=== PATIENT | female | born 1965 | race Caucasian/White ===

== ENCOUNTER → 2016-11-14 | Outpatient (CLI) | payer OTHER ==
--- NOTE | 2016-11-14 15:05 | US ---
EXAMINATION TYPE: US pelvic complete DATE OF EXAM: 11/14/2016 2:38 PM COMPARISON: Previous exam 06 Jan 2015 CLINICAL HISTORY: N85.8 UTERUS FIBROSIS,CYST. History of ovarian cysts, pelvic and back pain, irregul ar cycles, 2, para 2, history of tubal ligation TECHNIQUE: Transvaginal (TV) and Transabdominal (TA) endovaginal scanning performed for better evalu ation of the uterus and ovaries Date of LMP: 11/08/16 EXAM MEASUREMENTS: Uterus: 8.4 x 4.3 x 5.1 cm Endometrial Stripe: 0.9 cm Right Ovary: not seen Left Ovary: not seen 1. Uterus: anteverted, heterogenous echotexture without any definite lesions seen at this time, mult iple nabothian cysts 2. Endometrium: appears thickened for patient's LMP 3. Right Ovary: not seen due to overlying peristalsing bowel 4. Left Ovary: not seen due to overlying peristalsing bowel 5. Bilateral Adnexa: wnl 6. Posterior cul-de-sac: small amount of free fluid seen IMPRESSION: Exam is limited. Small amount of free fluid in the pelvis. Correlate for appropriate phas e of patient's flexor cycle for endometrial stripe thickness.
== END ==
LOC: RADUSWWP 14:12
PROVIDERS: ATTEND Family Medicine
DX: N85.8 Other specified noninflammatory disorders of uterus (principal)
CPT/HCPCS: 76830; 76856

== ENCOUNTER → 2017-01-04 | Outpatient (CLI) | payer OTHER ==
[2017-01-04 07:53] LABS: Basophils % (A) 0 %; CH 30.9; CHCM 33.6; Eosinophils # (A) 0.1 k/uL (0-0.7); Eosinophils % (A) 1 %; HDW 2.08; HGB 12.8 gm/dL (11.4-16.0); Luc # (Auto) 0.14; Luc % (Auto) 2; Lymphocytes % (A) 34 %; MCH 30.3 pg (25.0-35.0); MCHC 32.9 g/dL (31.0-37.0); MCV 92.3 fL (80.0-100.0); Mean Platelet Volume 6.8; Monocytes # (A) 0.4 k/uL (0-1.0); Monocytes % (A) 6 %; Neutrophils # (A) 3.3 k/uL (1.3-7.7); Neutrophils % (A) 56 %; RBC 4.22 m/uL (3.80-5.40); WBC (Perox) 5.56
== END | disposition home or self-care (01) ==
LOC: LABPAT 07:33
PROVIDERS: ATTEND Obstetrics & Gynecology
DX: Z01.812 Encounter for preprocedural laboratory examination (principal); N88.2 Stricture and stenosis of cervix uteri; N93.8 Other specified abnormal uterine and vaginal bleeding
CPT/HCPCS: 85025

== ENCOUNTER 2017-01-18 06:49 | Day surgery (SDC) | payer OTHER ==
--- NOTE | 2017-01-17 16:09 | HP ---
DATE OF ADMISSION: 01/18/2017 HISTORY OF PRESENT ILLNESS: The patient is a 51-year-old 2, para 2-0-0-[address] Dallas for significantly increasing cycle irregularity and a history of ovarian cysts. She presented initially with increasing cycle irregularity over the course of the last 2 years and had had multiple previous evaluations with Dr. Lal, at which times normal endometrial findings were noted. Most recently, however, she has been found to have bleeding roughly every 2 weeks. Ultrasound showed normal uterine and ovarian findings with an endometrial stripe thickness of 9 mm. She did have some acute pain immediately prior to her visit in our office which was consistent with a ruptured hemorrhagic cyst, all of the symptoms having resolved prior to presentation. She has minimal ongoing vasomotor symptoms and denies any dyspareunia or other [employer] issues. Past medical history is significant for a history of bradycardia as well as hypotension. She additionally has a history of migraine headaches, osteoarthritis, phlebitis and Raynaud syndrome as well as a torn left knee meniscus and some vertigo. Past surgical history is significant for D&C in the past by Dr. Lal. She additionally had cervical disc fusion and discectomy in 2009. She had a tubal ligation in 1990 and she had vein stripping of her left lower leg in 1982. Apparently there is no history of anesthetic concerns. OBSTETRICAL HISTORY: 2, para 2-0-0-2 with two term vaginal deliveries without complications. Method of contraception is tubal ligation. GYNECOLOGIC HISTORY: Unremarkable, with no history of any infections to include STDs. FAMILY HISTORY: Noncontributory. SOCIAL HISTORY: The patient is and does work outside the home. She is a nonsmoker and reports minimal alcohol or any other social concerns. Current medications include: 1. Multivitamin daily. 2. Estroven daily. 3. Claritin 10 mg daily as needed. 4. Fioricet as needed. 5. Ibuprofen 800 mg q.8 hours as needed. 6. Valtrex as needed. 7. Valium 5 mg as needed. 8. Vitamin D daily. ALLERGIES: DEXTROMETHORPHAN reportedly causes bradycardia and fainting as well as dizziness. REVIEW OF SYSTEMS: Confined to History of Present Illness. PHYSICAL EXAMINATION: Vital signs are stable. The patient is afebrile. In general this is a well-developed, well-nourished white female in no acute distress. Her heart has a regular rhythm and rate without murmur. Her lungs are clear to auscultation bilaterally in all villalpando. Her abdomen is nondistended, has normoactive bowel sounds, is soft, nontender, and without any palpable masses, hepatosplenomegaly or hernias. Her extremities are without any cyanosis, clubbing or edema and are nontender to palpation bilaterally. Pelvic examination demonstrates normal external genitalia and BUS with normal vaginal mucosa and cervix. There is no cervical motion tenderness. The uterus is 5 weeks in size, mid plane, mobile, nontender and normal in shape. I was unable to complete an endometrial biopsy secondary to cervical stenosis and inability to pass the biopsy tool. ASSESSMENT AND PLAN: Dysfunctional uterine bleeding with cervical stenosis. The diagnoses were discussed with the patient at some length and we discussed multiple different options for intervention. She has, after discussion of the choices, opted to proceed with diagnostic hysteroscopy with D&C and subsequent NovaSure endometrial ablation. The risks and complications of the procedures have been thoroughly discussed, including the risks for bleeding, bleeding requiring transfusion, infection, and injury to local structures to specifically include uterine perforation, Asherman syndrome, and subsequent hematometra. She understands all of these concerns and has agreed to proceed. She will be pretreated overnight with Cytotec to attempt to alleviate some of the stenosis.
[~2017-01-18 06:49] MED LIST: DEXAMETHASONE SOD PHOSPHATE 10 MG/ML 1 ML VIAL IV ONE; HYDROmorphone 1 MG/ML 1 ML SYRINGE IVP PRN; LACTATED RINGERS 1,000 ML IV SCH; MIDAZOLAM 2 MG/2 ML VIAL IV PRN; ONDANSETRON 4 MG/2 ML VIAL IVP ONE; Pre Op ABX Message 1 EACH MISC MISCELLANE ONE; SCOPOLAMINE 1.5MG/72HR PATCH TRANSDERM ONE
[2017-01-18] MEDS ORDERED: LIDOCAINE 1% 20 ML VIAL (10MG/ML) FOR IV START INTRADERMA ONE (07:22)
[2017-01-18] MEDS ORDERED: KETOROLAC 30 MG/ML 1 ML VIAL ONE (08:05)
[2017-01-18] MEDS ORDERED: PROPOFOL 10 MG/ML 20 ML VIAL IV ONE (08:05)
[2017-01-18] MEDS ORDERED: fentaNYL (PF) 50 MCG/ML 2 ML AMP ONE (08:05)
[2017-01-18] MEDS ORDERED: LIDOCAINE 1% INJ 10MG/ML (20 ML MDV) ONE (08:05)
[2017-01-18] MEDS ORDERED: MIDAZOLAM 2 MG/2 ML VIAL ONE (08:05)
[2017-01-18] MEDS ORDERED: ONDANSETRON 4 MG/2 ML VIAL IVP PRN (08:39)
[2017-01-18] MEDS ORDERED: diphenhydrAMINE 50 MG/ML 1 ML VIAL IVP PRN (08:39)
[2017-01-18] MEDS ORDERED: SIMETHICONE 80 MG CHEWABLE PO PRN (08:39)
[2017-01-18] MEDS ORDERED: IBUPROFEN 600 MG TAB PO PRN (08:39)
[2017-01-18] MEDS ORDERED: METOCLOPRAMIDE 5 MG/ML 2 ML VIAL IVP PRN (08:39)
[2017-01-18] MEDS ORDERED: Acetaminophen-Codeine 300-30mg TAB PO PRN ×2 (08:39)
[2017-01-18] MEDS ORDERED: KETOROLAC 30 MG/ML 1 ML VIAL IVP PRN (08:39)
[2017-01-18] MEDS ORDERED: LACTATED RINGERS 1,000 ML IV SCH (08:45)
--- NOTE | 2017-01-18 08:46 | P.OP ---
Date of Procedure: 01/18/17 Preoperative Diagnosis: #1. Dysfunctional uterine bleeding #2. Cervical stenosis Postoperative Diagnosis: Same Procedure(s) Performed: #1. Diagnostic hysteroscopy #2. Dilation and curettage #3. NovaSure endometrial ablation Implants: Anesthesia: other (Gen. by face mask) Surgeon: Jonathan Lentz Estimated Blood Loss (ml): 5 IV fluids (ml): 300 Urine output (ml): 40 Pathology: other (Endometrial curettings) Condition: stable Disposition: PACU Indications for Procedure: Operative Findings: Preoperative pelvic examination demonstrated a roughly 4-5 week retroverted mobile normal shaped uterus with normal adnexa bilaterally. The external os was slightly stenotic but was easily passed through with a uterine sound. The cervix measured approximately 3-1/2 cm while the uterus measured approximately 8 cm. Using the hysteroscope, the in vitro cavity was examined and there was no significant pathology noted. The tubal ostia were seen bilaterally. The settings for the NovaSure tool were a length of 4.5 cm, a width of 2.7 cm, a total power of 69 W. The total run time was 93 seconds after which time the base unit read "procedure complete." The postprocedural result appeared to be excellent. The patient is a borderline candidate for vaginal hysterectomy should become necessary. Description of Procedure: The patient was prepped and draped in usual fashion after general anesthesia was administered by the anesthesiologist. A weighted speculum was placed and the anterior lip of the cervix was grasped with a single-tooth tenaculum. The bladder had previously been drained of approximately 40 mL of clear sandra urine. A uterine sound was utilized to break down the stenosis at the external os and the uterus sounded to approximately 8 cm with the cervix measuring approximately 3.5 cm. Serial dilation was carried out to admit the diagnostic hysteroscope which was placed with findings as noted above. After adequate hysteroscopy had been carried out, the scope was set aside and further dilation carried out to admit a small sharp curette. Thorough circumferential curettage was carried out removing the tissue onto a Telfa placed in the vagina. Once adequately curetted, the Telfa was passed for pathological diagnoses and the NovaSure tool placed within the in vitro cavity. It was opened and seated well. The settings for the tool were as noted above. The cervix was of sealed and the cavity check attempted and passed without difficulty. The tool was enabled and the run was started. After a run time of approximately 93 seconds, the tool disengaged and the base unit read "procedure complete." The 2 was closed, removed, and discarded and the diagnostic scope replaced with the findings appeared to be excellent as noted above. Allis her mentation was removed. There is no ongoing bleeding from the tenaculum site or uterus. Estimated blood loss for the entire case was 5 mL or less. There are no complications. All sponge, instrument, and needle counts were correct. The patient tolerated the procedure well and proceeded to the recovery room in stable condition.
[2017-01-18 08:53] VITALS: TEMP 97.6
[2017-01-18 09:25] VITALS: RESP 18
[2017-01-18 09:39] VITALS: BP 102/56; PULSE 50
== END 2017-01-18 10:10 | disposition home or self-care (01) ==
LOC: OR 06:49
PROVIDERS: ATTEND Obstetrics & Gynecology
DX: N88.2 Stricture and stenosis of cervix uteri (principal); N93.8 Other specified abnormal uterine and vaginal bleeding; G43.909 Migraine, unspecified, not intractable, without status migrainosus; M19.90 Unspecified osteoarthritis, unspecified site; Z88.8 Allergy status to other drugs, medicaments and biological substances; Z79.899 Other long term (current) drug therapy
CPT/HCPCS: 58563; 81025; 88305; J2250; J1100; J2405; J2001; J3010; J1885; J2704

== ENCOUNTER → 2017-03-27 | Outpatient (CLI) | payer OTHER ==
--- NOTE | 2017-04-01 11:17 | MM ---
Reason for exam: screening (asymptomatic). Last mammogram was performed 2 years and 9 months ago. History: Family history of breast cancer in maternal aunt at age 50 and premenopausal breast cancer in maternal cousin at age 40. Benign stereotactic core biopsy of the right breast, February 22, 2000. Core biopsy of the right breast. Took hormonal contraceptives for 5 years beginning at age 15. Physical Findings: A clinical breast exam by your physician is recommended on an annual basis and results should be correlated with mammographic findings. MG 3D Screening Mammo W/Cad Bilateral CC and MLO view(s) were taken. Prior study comparison: June 22, 2014, bilateral MG screening mammo w CAD. March 20, 2012, bilateral digital screening mammo w/CAD. There are scattered fibroglandular densities. There is no discrete abnormality. ASSESSMENT: Negative, BI-RAD 1 RECOMMENDATION: Routine screening mammogram of both breasts in 1 year.
== END | disposition home or self-care (01) ==
LOC: RADMAMWWP 14:46
PROVIDERS: ATTEND Obstetrics & Gynecology
DX: Z12.31 Encounter for screening mammogram for malignant neoplasm of breast (principal); Z80.3 Family history of malignant neoplasm of breast
CPT/HCPCS: 77063; G0202

== ENCOUNTER → 2017-12-04 | Outpatient (CLI) | payer OTHER ==
[2017-12-04 06:58] LABS: Basophils % (A) 0 %; Eosinophils # (A) 0.1 k/uL (0-0.7); Eosinophils % (A) 2 %; HCT 38.9 % (34.0-46.0); HGB 12.9 gm/dL (11.4-16.0); Lymphocytes # (A) 1.7 k/uL (1.0-4.8); Lymphocytes % (A) 32 %; MCH 30.2 pg (25.0-35.0); MCHC 33.2 g/dL (31.0-37.0); MCV 90.9 fL (80.0-100.0); Mean Platelet Volume 6.7; Monocytes # (A) 0.3 k/uL (0-1.0); Monocytes % (A) 5 %; Neutrophils % (A) 57 %; Platelet Count 308 k/uL (150-450); RBC 4.28 m/uL (3.80-5.40); RDW 12.5 % (11.5-15.5); WBC 5.3 k/uL (3.8-10.6)
[2017-12-04 07:27] LABS: ALT 29 U/L (9-52); AST 19 U/L (14-36); Albumin 4.2 g/dL (3.5-5.0); Alkaline Phosphatase 67 U/L (38-126); Anion Gap 10 mmol/L; Blood Urea Nitrogen 12 mg/dL (7-17); Calcium 9.7 mg/dL (8.4-10.2); Carbon Dioxide 27 mmol/L (22-30); Chloride 103 mmol/L (98-107); Cholesterol 230 mg/dL (<200); Glucose 94 mg/dL (74-99); HDL Cholesterol 64 mg/dL (40-60); LDL Cholesterol,Calculated 141 mg/dL (0-99); Sodium 140 mmol/L (137-145); Total Bilirubin 0.3 mg/dL (0.2-1.3); Triglycerides 124 mg/dL (<150)
[2017-12-04 07:38] LABS: T4, Free (Free Thyroxine) 0.94 ng/dL (0.78-2.19)
[2017-12-04 11:05] LABS: Vitamin D 25 Hydroxy 18.5 ng/mL (30.0-100.0)
[2017-12-04 11:40] LABS: Hepatitis A Antibody IgM Non-Reactive (Non-Reactive)
[2017-12-04 11:41] LABS: Hepatitis B Core IgM Non-Reactive (Non-Reactive)
[2017-12-04 13:26] LABS: Hemoglobin A1C 5.6 % (4.0-6.0)
== END | disposition home or self-care (01) ==
LOC: LABWHC1 06:30
PROVIDERS: ATTEND Family Medicine
DX: Z00.00 Encounter for general adult medical examination without abnormal findings (principal); M19.90 Unspecified osteoarthritis, unspecified site; G43.009 Migraine without aura, not intractable, without status migrainosus
CPT/HCPCS: 36415; 80053; 80061; 80074; 82306; 83036; 84439; 84443; 85025

== ENCOUNTER → 2018-03-28 | Outpatient (CLI) | payer OTHER ==
--- NOTE | 2018-03-31 12:12 | MM ---
Reason for exam: screening (asymptomatic). Last mammogram was performed 1 year ago. History: Family history of breast cancer in maternal aunt at age 50 and premenopausal breast cancer in maternal cousin at age 40. Benign stereotactic core biopsy of the right breast, February 22, 2000. Core biopsy of the right breast. Took hormonal contraceptives for 5 years beginning at age 15. Physical Findings: A clinical breast exam by your physician is recommended on an annual basis and results should be correlated with mammographic findings. MG 3D Screening Mammo W/Cad Bilateral CC and MLO view(s) were taken. Technologist: RT Tomás (R)(M) Prior study comparison: March 27, 2017, bilateral MG 3d screening mammo w/cad. June 22, 2014, bilateral MG screening mammo w CAD. There are scattered fibroglandular densities. No suspicious abnormality. Right biopsy marker noted. ASSESSMENT: Negative, BI-RAD 1 RECOMMENDATION: Routine screening mammogram of both breasts in 1 year.
== END | disposition home or self-care (01) ==
LOC: RADMAMWWP 06:53
PROVIDERS: ATTEND Family Medicine
DX: Z12.31 Encounter for screening mammogram for malignant neoplasm of breast (principal)
CPT/HCPCS: 77063; 77067

== ENCOUNTER → 2019-05-19 | Outpatient (CLI) | payer OTHER ==
--- NOTE | 2019-05-19 16:26 | XR ---
EXAMINATION TYPE: XR lumbosacral spine min 4V DATE OF EXAM: 05/19/2019 CLINICAL HISTORY: Right-sided sciatica and low back pain. TECHNIQUE: Frontal, lateral, and oblique images of the lumbar spine are obtained. COMPARISON: None FINDINGS: There are 5 lumbar type vertebral bodies identified. The lumbar spine shows satisfactory alignment without evidence of acute fracture or dislocation. Vertebral body heights are within normal limits. The oblique images appear within normal limits. Intervertebral disc space narrowing is pre sent at L3-L4, L4-5 and L5-S1 with very minimal grade 1 anterolisthesis of 2 mm of L5 on S1. Facet ar thropathy is present from L4 through S1 with small anterior osteophytes of the lumbar spine are noted . The overlying soft tissue appears unremarkable. IMPRESSION: 1. No acute fracture or malalignment is seen in the lumbar spine. 2. Grade 1 anterolisthesis of L5 on S1, likely due to hypertrophic facet change. 3. Mild multilevel degenerative disc disease of the lumbar spine most focal from L3 through S1. Given the patient's symptoms MRI could assess for neural foraminal narrowing or disc herniation.
== END | disposition home or self-care (01) ==
LOC: LABWHC1 14:33
PROVIDERS: ATTEND Family Medicine
DX: M43.17 Spondylolisthesis, lumbosacral region (principal); M51.37 Other intervertebral disc degeneration, lumbosacral region; M51.36 Other intervertebral disc degeneration, lumbar region
CPT/HCPCS: 72110

== ENCOUNTER → 2019-06-03 | Outpatient (CLI) | payer OTHER ==
--- NOTE | 2019-06-03 15:57 | MR ---
EXAMINATION TYPE: MR lumbar spine wo con DATE OF EXAM: 06/03/2019 COMPARISON: Lumbar spine 05/19/2019 HISTORY: Sciatica, right side Disc disease, lower back pain TECHNIQUE: T1 and T2 axial and sagittal images of the lumbar spine are submitted. FINDINGS: There is no abnormal signal seen within the visualized spinal cord or paraspinal soft tissu es. At L1-2 there is no disc herniation or canal stenosis. No foraminal encroachment. At L2-3 there is no disc herniation or canal stenosis. No foraminal encroachment. At L3-4 there is circumferential disc bulging with facet arthropathy. Mild effacement of thecal sac a nd mild bilateral foraminal encroachment. No Canal stenosis At L4-5 there is degenerative disc disease with the disc broad-based bulging greater paracentrally an d laterally to the right. Right lateral and paracentral disc protrusion or herniation suspected with moderate right-sided foraminal encroachment. There is facet arthropathy and mild effacement of thecal sac with borderline stenosis. At L5-S1 there is degenerative disc disease and broad-based disc bulging slightly greater paracentral ly and laterally to the right. Hypertrophic change of the facets results in mild to moderate bilatera l foraminal encroachment. Could not exclude a bilateral spondylolysis of L5 with minimal anterolisthe sis. IMPRESSION: 1. Degenerative disc disease L3-S1. Disc bulging L3-L4 with mild effacement of thecal sac and mild bi lateral foraminal encroachment. 2. Broad-based disc bulging greater paracentrally and laterally the right at L4-L5. Moderate right-si ded foraminal encroachment. Right lateral and paracentral disc protrusion or herniation suspected. 3. Disc bulging L5-S1 with mild to moderate bilateral foraminal encroachment but no definite canal st enosis.
== END | disposition home or self-care (01) ==
LOC: RADMRIMAIN 14:31
PROVIDERS: ATTEND Family Medicine
DX: M51.26 Other intervertebral disc displacement, lumbar region (principal); M51.27 Other intervertebral disc displacement, lumbosacral region; M51.37 Other intervertebral disc degeneration, lumbosacral region
CPT/HCPCS: 72148

== ENCOUNTER → 2019-10-08 | Outpatient (CLI) | payer BC ==
[2019-10-08 07:37] LABS: Basophils % (A) 0 %; Eosinophils # (A) 0.1 k/uL (0-0.7); Eosinophils % (A) 2 %; HCT 40.8 % (34.0-46.0); HGB 12.8 gm/dL (11.4-16.0); Lymphocytes # (A) 1.5 k/uL (1.0-4.8); Lymphocytes % (A) 33 %; MCH 29.7 pg (25.0-35.0); MCHC 31.4 g/dL (31.0-37.0); MCV 94.5 fL (80.0-100.0); Mean Platelet Volume 7.2; Monocytes # (A) 0.3 k/uL (0-1.0); Monocytes % (A) 5 %; Neutrophils # (A) 2.7 k/uL (1.3-7.7); Neutrophils % (A) 57 %; Platelet Count 282 k/uL (150-450); RBC 4.32 m/uL (3.80-5.40); RDW 12.5 % (11.5-15.5); WBC 4.7 k/uL (3.8-10.6)
[2019-10-08 12:32] LABS: African American GFR (CKD) 95.5 (60.0-200.0); Albumin 4.5 g/dL (3.80-4.90); Albumin/Globulin Ratio 2.25 (1.60-3.17); Anion Gap 2.9 mmol/L (4.00-12.00); BUN/Creat Ratio 17.5 Ratio (12.00-20.00); Calcium 9.4 mg/dL (8.7-10.3); Carbon Dioxide 27.1 mmol/L (21.6-31.8); Chol/HDL Ratio 2.29; LDL Cholesterol,Calculated 67.4 mg/dL (0.0-131.0); Non-African American GFR(CKD) 82.4 (60.0-200.0); Potassium 4.6 mmol/L (3.5-5.5); Total Bilirubin 0.5 mg/dL (0.2-1.2); Total Protein 6.5 g/dL (6.2-8.2); VLDL Calculation 16.6 mg/dL (5.00-40.00)
[2019-10-08 12:40] LABS: T4, Free (Free Thyroxine) 1.3 ng/dL (0.80-1.80)
[2019-10-08 13:59] LABS: Hemoglobin A1C 5.6 % (4.0-6.0)
== END | disposition home or self-care (01) ==
LOC: LABWHC1 06:59
PROVIDERS: ATTEND Family Medicine
DX: Z00.00 Encounter for general adult medical examination without abnormal findings (principal); E55.9 Vitamin D deficiency, unspecified; E78.5 Hyperlipidemia, unspecified; G43.909 Migraine, unspecified, not intractable, without status migrainosus
CPT/HCPCS: 36415; 80053; 80061; 82306; 83036; 84439; 84443; 85025

== ENCOUNTER → 2019-11-11 | Outpatient (CLI) | payer BC ==
--- NOTE | 2019-11-11 09:50 | MM ---
Reason for exam: screening (asymptomatic). Last mammogram was performed 1 year and 7 months ago. History: Family history of breast cancer in maternal aunt at age 50 and premenopausal breast cancer in maternal cousin at age 40. Benign stereotactic core biopsy of the right breast, February 22, 2000. Core biopsy of the right breast. Took hormonal contraceptives for 5 years beginning at age 15. Physical Findings: A clinical breast exam by your physician is recommended on an annual basis and results should be correlated with mammographic findings. MG 3D Screening Mammo W/Cad Bilateral CC and MLO view(s) were taken. XCCL view(s) were taken of the right breast. Prior study comparison: March 28, 2018, bilateral MG 3d screening mammo w/cad. March 27, 2017, bilateral MG 3d screening mammo w/cad. There are scattered fibroglandular densities. No suspicious abnormality. Right biopsy marker noted. No significant changes when compared with prior studies. ASSESSMENT: Negative, BI-RAD 1 RECOMMENDATION: Routine screening mammogram of both breasts in 1 year.
== END | disposition home or self-care (01) ==
LOC: RADMAMWWP 07:39
PROVIDERS: ATTEND Family Medicine
DX: Z12.31 Encounter for screening mammogram for malignant neoplasm of breast (principal); Z80.3 Family history of malignant neoplasm of breast
CPT/HCPCS: 77063; 77067

== ENCOUNTER → 2021-06-02 | Outpatient (CLI) | payer MEDICAID ==
[2021-06-02 10:53] LABS: HCT 36.7 % (37.2-46.3); HGB 11.7 g/dL (12.0-15.0); MCH 29.1 pg (27.0-32.0); MCHC 31.9 g/dL (32.0-37.0); MCV 91.3 fL (80.0-97.0); Mean Platelet Volume 9.3 fL (9.5-12.2); Platelet Count 325 X 10*3/uL (140-440); RBC 4.02 X 10*6/uL (4.10-5.20); RDW 13.6 % (11.5-14.5); WBC 9.92 X 10*3/uL (4.50-10.00)
[2021-06-02 15:13] LABS: African American GFR (CKD) 102.2 (60.0-200.0); Albumin 4.3 g/dL (3.8-4.9); Albumin/Globulin Ratio 2.17 (1.60-3.17); Anion Gap 10.6 mmol/L (4.00-12.00); BUN/Creat Ratio 18.45 Ratio (12.00-20.00); Blood Urea Nitrogen 13.8 mg/dL (9.0-27.0); Calcium 9.3 mg/dL (8.7-10.3); Carbon Dioxide 24.5 mmol/L (21.6-31.8); Chol/HDL Ratio 2.08 Ratio; HDL Cholesterol 72.7 mg/dL (40.00-60.00); Non-African American GFR(CKD) 88.2 (60.0-200.0); Potassium 4.3 mmol/L (3.5-5.5); T4, Free (Free Thyroxine) 1.29 ng/dL (0.800-1.800); Total Bilirubin 0.2 mg/dL (0.30-1.20); Total Protein 6.2 g/dL (6.2-8.2); Triglycerides 71.5 mg/dL (0.00-149.00); VLDL Calculation 14.3 mg/dL (5.00-40.00)
== END | disposition home or self-care (01) ==
LOC: LABWHC1 07:27
PROVIDERS: ATTEND Family Medicine
DX: Z00.00 Encounter for general adult medical examination without abnormal findings (principal); I10 Essential (primary) hypertension; E78.5 Hyperlipidemia, unspecified; E55.9 Vitamin D deficiency, unspecified; G43.909 Migraine, unspecified, not intractable, without status migrainosus
CPT/HCPCS: 36415; 80053; 80061; 82306; 83036; 84439; 84443; 85027

== ENCOUNTER 2022-03-02 14:32 | Emergency (ER) | payer MEDICAID ==
[2022-03-02 16:19] VITALS: RESP 16; TEMP 97.8
[2022-03-02] MEDS ORDERED: SODIUM CHLORIDE 0.9% 500 ML 500 ML IV STA (17:06)
[2022-03-02] MEDS ORDERED: MORPHINE SULFATE 4 MG/ML SYRINGE IV STA (17:06)
--- NOTE | 2022-03-02 17:11 | ED ---
General Adult HPI - General Chief complaint: Abdominal Pain Stated complaint: Syncope/Abd Pain Time Seen by Provider: 03/02/22 16:57 Source: patient, RN notes reviewed, old records reviewed Mode of arrival: ambulatory Limitations: no limitations - History of Present Illness Initial comments: 56-year-old female presents for evaluation of lower abdominal pain and bloody diarrhea. Patient states her symptoms began earlier this afternoon. She had some crampy lower abdominal pain which is bilateral followed by some lightheadedness and diarrhea. She noted that the diarrhea was accommodation of stool and dark blood. She is not on any blood thinners. She has no measured fever. She states she had has some nausea without vomiting for the past several days. - Related Data Home Medications Medication Instructions Recorded Confirmed Acetaminophen [Tylenol Arthritis] 650 mg PO Q6H PRN 01/11/17 02/04/20 Cholecalciferol [Vitamin D3] 2,000 unit PO DAILY 01/11/17 02/04/20 Docusate [Colace] 200 mg PO HS 01/11/17 02/04/20 Loratadine [Claritin] 10 mg PO DAILY PRN 01/11/17 02/04/20 diazePAM [Valium] 10 mg PO HS PRN 01/11/17 02/04/20 Atorvastatin [Lipitor] 10 mg PO DAILY 02/04/20 02/04/20 Naproxen [Naprosyn] 500 mg PO BID 02/04/20 02/04/20 Previous Rx's Medication Instructions Recorded Azithromycin [Zithromax Tri-Gelacio (3 500 mg PO DAILY 3 Days #3 tab 03/02/22 tabs)] HYDROcodone/APAP 5-325MG [[place] 1 tab PO Q6HR PRN #12 tab 03/02/22 5-325] Allergies Allergy/AdvReac Type Severity Reaction Status Date / Time dextromethorphan Allergy Rapid Verified 03/02/22 16:16 Heart Rate Review of Systems ROS Statement: Those systems with pertinent positive or pertinent negative responses have been documented in the HPI. ROS Other: All systems not noted in ROS Statement are negative. 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 History of Any Multi-Drug Resistant Organisms: None Reported Past Surgical History: Back Surgery, Tubal Ligation, Uterine Ablation Additional Past Surgical History / Comment(s): CERVICAL DISCECTOMY & FUSION, VEIN STRIPPING LEFT LEG, RIGHT BREAST BX, COLONOSCOPY Past Anesthesia/Blood Transfusion Reactions: No Reported Reaction Past Psychological History: Anxiety Past Alcohol Use History: Occasional Past Drug Use History: None Reported - Past Family History Mother Family Medical History: Cancer Additional Family Medical History / Comment(s): LUNG CANCER General Exam Limitations: no limitations General appearance: alert, in no apparent distress Head exam: Present: atraumatic, normocephalic Eye exam: Present: normal appearance, PERRL ENT exam: Present: normal exam Neck exam: Present: normal inspection. Absent: tenderness, meningismus Respiratory exam: Present: normal lung sounds bilaterally. Absent: respiratory distress, wheezes Cardiovascular Exam: Present: regular rate, normal rhythm GI/Abdominal exam: Present: soft, tenderness. Absent: distended Extremities exam: Present: normal inspection, normal capillary refill. Absent: pedal edema, calf tenderness Neurological exam: Present: alert, oriented X3, CN II-XII intact. Absent: motor sensory deficit Psychiatric exam: Present: normal affect, normal mood Skin exam: Present: warm, dry, intact. Absent: cyanosis, diaphoretic Course Vital Signs 03/02/22 03/02/22 16:16 17:30 Temperature 97.8 F Pulse Rate 65 58 L Respiratory 16 16 Rate Blood Pressure 138/70 138/76 O2 Sat by Pulse 99 99 Oximetry Medical Decision Making - Medical Decision Making 56-year-old female with lower abdominal pain and an episode of diarrhea which was blood-tinged with mucus. Patient has some lower abdominal tenderness. Workup was initiated including laboratory testing and computed tomography scan. She has leukocytosis of 14.9. Stable hemoglobin. She has a mild hyponatremia 128. This will require outpatient surveillance. I did give IV fluids and morphine as well as Zofran. Reevaluation she still has some pain but is overall feeling better. I preferred observation, hydration and pain control however p atient prefers discharge with strict return parameters. - Lab Data Result diagrams: 03/02/22 17:21 03/02/22 17:21 Lab Results 03/02/22 03/02/22 03/02/22 Range/Units 17:21 17:21 17:21 WBC 14.9 H (3.8-10.6) k/uL RBC 4.27 (3.80-5.40) m/uL Hgb 13.0 (11.4-16.0) gm/dL Hct 39.6 (34.0-46.0) % MCV 92.8 (80.0-100.0) fL MCH 30.5 (25.0-35.0) pg MCHC 32.9 (31.0-37.0) g/dL RDW 13.0 (11.5-15.5) % Plt Count 313 (150-450) k/uL MPV 7.0 Neutrophils % 90 % Lymphocytes % 6 % Monocytes % 3 % Eosinophils % 0 % Basophils % 0 % Neutrophils # 13.4 H (1.3-7.7) k/uL Lymphocytes # 0.8 L (1.0-4.8) k/uL Monocytes # 0.5 (0-1.0) k/uL Eosinophils # 0.1 (0-0.7) k/uL Basophils # 0.1 (0-0.2) k/uL PT 10.4 (9.0-12.0) sec INR 0.9 (<1.2) APTT 25.0 (22.0-30.0) sec Sodium (137-145) mmol/L Potassium (3.5-5.1) mmol/L Chloride (98-107) mmol/L Carbon Dioxide (22-30) mmol/L Anion Gap mmol/L BUN (7-17) mg/dL Creatinine (0.52-1.04) mg/dL Est GFR (CKD-EPI)AfAm (>60 ml/min/1.73 sqM) Est GFR (CKD-EPI)NonAf (>60 ml/min/1.73 sqM) Glucose (74-99) mg/dL Plasma Lactic Acid [place] (0.7-2.0) mmol/L Calcium (8.4-10.2) mg/dL Total Bilirubin (0.2-1.3) mg/dL AST (14-36) U/L ALT (4-34) U/L Alkaline Phosphatase (38-126) U/L Total Protein (6.3-8.2) g/dL Albumin (3.5-5.0) g/dL Lipase (23-300) U/L Urine Color Yellow Urine Appearance Clear (Clear) Urine pH 5.5 (5.0-8.0) Ur Specific [place] 1.048 H (1.001-1.035) Urine Protein Negative (Negative) Urine Glucose (UA) Negative (Negative) Urine Ketones 2+ H (Negative) Urine Blood Negative (Negative) Urine Nitrite Negative (Negative) Urine Bilirubin Negative (Negative) Urine Urobilinogen <2.0 (<2.0) mg/dL Ur Leukocyte Esterase Negative (Negative) 03/02/22 03/02/22 Range/Units 17:21 17:21 WBC (3.8-10.6) k/uL RBC (3.80-5.40) m/uL Hgb (11.4-16.0) gm/dL Hct (34.0-46.0) % MCV (80.0-100.0) fL MCH (25.0-35.0) pg MCHC (31.0-37.0) g/dL RDW (11.5-15.5) % Plt Count (150-450) k/uL MPV Neutrophils % % Lymphocytes % % Monocytes % % Eosinophils % % Basophils % % Neutrophils # (1.3-7.7) k/uL Lymphocytes # (1.0-4.8) k/uL Monocytes # (0-1.0) k/uL Eosinophils # (0-0.7) k/uL Basophils # (0-0.2) k/uL PT (9.0-12.0) sec INR (<1.2) APTT (22.0-30.0) sec Sodium 128 L (137-145) mmol/L Potassium 4.5 (3.5-5.1) mmol/L Chloride 98 (98-107) mmol/L Carbon Dioxide 22 (22-30) mmol/L Anion Gap 8 mmol/L BUN 15 (7-17) mg/dL Creatinine 0.67 (0.52-1.04) mg/dL Est GFR (CKD-EPI)AfAm >90 (>60 ml/min/1.73 sqM) Est GFR (CKD-EPI)NonAf >90 (>60 ml/min/1.73 sqM) Glucose 121 H (74-99) mg/dL Plasma Lactic Acid [place] 1.0 (0.7-2.0) mmol/L Calcium 9.2 (8.4-10.2) mg/dL Total Bilirubin 0.6 (0.2-1.3) mg/dL AST 27 (14-36) U/L ALT 17 (4-34) U/L Alkaline Phosphatase 72 (38-126) U/L Total Protein 7.2 (6.3-8.2) g/dL Albumin 4.5 (3.5-5.0) g/dL Lipase 53 (23-300) U/L Urine Color Urine Appearance (Clear) Urine pH (5.0-8.0) Ur Specific [place] (1.001-1.035) Urine Protein (Negative) Urine Glucose (UA) (Negative) Urine Ketones (Negative) Urine Blood (Negative) Urine Nitrite (Negative) Urine Bilirubin (Negative) Urine Urobilinogen (<2.0) mg/dL Ur Leukocyte Esterase (Negative) Disposition Clinical Impression: Colitis Disposition: HOME SELF-CARE Condition: Fair Instructions (If sedation given, give patient instructions): Colitis (ED) Additional Instructions: Please monitor symptoms closely, return with worsening pain, significant bleeding, fever or any new or changing symptoms. Prescriptions: HYDROcodone/APAP 5-325MG [[place] 5-325] 1 tab PO Q6HR PRN #12 tab PRN Reason: Pain Azithromycin [Zithromax Tri-Gelacio (3 tabs)] 500 mg PO DAILY 3 Days #3 tab Is patient prescribed a controlled substance at d/c from ED?: No Referrals: Rajesh Dallas DO [Primary Care Provider] - 1-2 days Melissa Kumari MD [STAFF PHYSICIAN] - 1-2 days Time of Disposition: 18:59
[2022-03-02] MEDS ORDERED: ONDANSETRON 4 MG/2 ML VIAL IVP STA (17:31)
[2022-03-02 17:52] LABS: Basophils # (A) 0.1 k/uL (0-0.2); Basophils % (A) 0 %; Eosinophils # (A) 0.1 k/uL (0-0.7); Eosinophils % (A) 0 %; HCT 39.6 % (34.0-46.0); Lymphocytes # (A) 0.8 k/uL (1.0-4.8); Lymphocytes % (A) 6 %; MCH 30.5 pg (25.0-35.0); MCHC 32.9 g/dL (31.0-37.0); MCV 92.8 fL (80.0-100.0); Monocytes # (A) 0.5 k/uL (0-1.0); Monocytes % (A) 3 %; Neutrophils # (A) 13.4 k/uL (1.3-7.7); Neutrophils % (A) 90 %; Platelet Count 313 k/uL (150-450); RBC 4.27 m/uL (3.80-5.40); WBC 14.9 k/uL (3.8-10.6)
[2022-03-02 18:01] LABS: ALT 17 U/L (4-34); AST 27 U/L (14-36); African American GFR (CKD) >90 (>60 ml/min/1.73 sqM); Albumin 4.5 g/dL (3.5-5.0); Alkaline Phosphatase 72 U/L (38-126); Anion Gap 8 mmol/L; Blood Urea Nitrogen 15 mg/dL (7-17); Calcium 9.2 mg/dL (8.4-10.2); Carbon Dioxide 22 mmol/L (22-30); Chloride 98 mmol/L (98-107); Glucose 121 mg/dL (74-99); Lipase 53 U/L (23-300); Non-African American GFR(CKD) >90 (>60 ml/min/1.73 sqM); Potassium 4.5 mmol/L (3.5-5.1); Sodium 128 mmol/L (137-145); Total Bilirubin 0.6 mg/dL (0.2-1.3); Total Protein 7.2 g/dL (6.3-8.2)
[2022-03-02 18:04] LABS: INR 0.9 (<1.2); Prothrombin Time 10.4 sec (9.0-12.0)
[2022-03-02 18:28] LABS: Appearance,Urine Clear (Clear); Bilirubin,Urine Negative (Negative); Blood,Urine Negative (Negative); Color,Urine Yellow; Glucose,Urine (UA) Negative (Negative); Ketones,Urine 2+ (Negative); Leukocyte Esterase,Urine Negative (Negative); Nitrite,Urine Negative (Negative); PH, Urine 5.5 (5.0-8.0); Protein,Urine Negative (Negative); Urobilinogen,Urine <2.0 mg/dL (<2.0)
--- NOTE | 2022-03-02 18:28 | CT ---
EXAMINATION TYPE: CT abdomen pelvis w con DATE OF EXAM: 03/02/2022 COMPARISON: None HISTORY: Abd pain CT DLP: 1361.9 mGycm Automated exposure control for dose reduction was used. CONTRAST: Performed with IV Contrast, patient injected with 100 mL of Isovue 370. Images obtained from the diaphragm to the floor the pelvis with the IV contrast. There is mild subsegmental atelectasis at the lung bases. Heart size is normal. No pericardial effusi on. Liver spleen pancreas gallbladder appear intact. The bile ducts are not dilated. There is no adre nal mass. Kidneys show satisfactory contrast opacification. There is no hydronephrosis. Ureters are n ot dilated. There is no retroperitoneal adenopathy. There is small amount of fluid in the left paraco lic gutter. There is wall thickening of the descending colon. Sigmoid colon appears fairly normal. The lumbar vertebrae have fairly normal alignment. No compression fracture. There is L5 spondylolysis with minimal L5-S1 spondylolisthesis. No focal bone destruction. The bony pelvis is intact. The hip joints are intact. There is no ascites. IMPRESSION: There is moderate wall thickening of the descending colon with some fat stranding and fluid in the le ft paracolic gutter. This could be some nonspecific colitis. No evidence of any significant diverticu lar disease.
[2022-03-02 18:30] LABS: Specific Gravity,Urine 1.048 (1.001-1.035)
[2022-03-02 19:09] VITALS: BP 109/62; PULSE 56
== END 2022-03-02 19:28 | disposition home or self-care (01) ==
LOC: EC 14:32
DX: K52.9 Noninfective gastroenteritis and colitis, unspecified (principal); I10 Essential (primary) hypertension; Z88.8 Allergy status to other drugs, medicaments and biological substances
CPT/HCPCS: 36415; 80053; 83605; 83690; 85025; 85610; 85730; 81003; 74177; 99285; 96374; 96375; 96361; J2270; J2405; Q9967

== ENCOUNTER 2022-05-08 08:24 | Day surgery (SDC) | payer MEDICAID ==
[2022-05-07 10:55] VITALS: BMI 34.7
[~2022-05-08 08:24] MED LIST changes: -DEXAMETHASONE SOD PHOSPHATE 10 MG/ML 1 ML VIAL IV ONE; -HYDROmorphone 1 MG/ML 1 ML SYRINGE IVP PRN; +LIDOCAINE 1% (10MG/ML) FOR IV START INTRADERMA PRN; -MIDAZOLAM 2 MG/2 ML VIAL IV PRN; -ONDANSETRON 4 MG/2 ML VIAL IVP ONE; -Pre Op ABX Message 1 EACH MISC MISCELLANE ONE; -SCOPOLAMINE 1.5MG/72HR PATCH TRANSDERM ONE
[2022-05-08 09:31] LABS: Glucose,Whole Blood 94 mg/dL (70-110)
[2022-05-08 09:32] VITALS: TEMP 97.8
[2022-05-08] MEDS ORDERED: LIDOCAINE 2% INJ 20 MG/ML (2 ML VIAL) ONE (09:44)
[2022-05-08] MEDS ORDERED: PROPOFOL 10 MG/ML 20 ML VIAL IV ONE (09:44)
--- NOTE | 2022-05-08 10:09 | P.PCN ---
Date of Procedure: 05/08/22 Procedure(s) Performed: BRIEF HISTORY: Patient is a 56-year-old pleasant white female scheduled for an elective colonoscopy as a part of evaluation of recent episode of acute colitis for which she was hospitalized for 2 days a month ago. CT of abdomen showed thickening of the descending colon consistent with acute colitis. She was treated with antibiotics and discharged. PROCEDURE PERFORMED: Colonoscopy with biopsy. PREOPERATIVE DIAGNOSIS: []. IV sedation per Anesthesia. PROCEDURE: After informed consent was obtained, the patient, was brought into the endoscopy unit. IV sedation was administered by Anesthesia under continuous monitoring. Digital rectal examination was normal. Initially the Olympus CF-160 flexible video pediatric colonoscope was then inserted in the rectum, gradually advanced into the cecum moderate difficulty. Careful examination was performed as the scope was gradually being withdrawn. Ileocecal valve and the appendiceal orifice were visualized and appeared normal. Prep was excellent. Mucosa of the cecum, ascending colon, transverse colon, appeared normal. There was evidence of segmental colitis involving the descending colon, sigmoid colon, extending from 30-60 cm from the anal verge with mucosal erythema, friability, was discoloration and some superficial ulcerations more consistent with ischemic colitis and multiple biopsies were done from this area. Mucosa of the distal sigmoid colon and rectum appeared normal. Retroflexion was performed in the rect um and no lesions were seen. The patient tolerated the procedure well. IMPRESSION: Segmental colitis involving the proximal sigmoid colon and distal descending colon extending from 30-60 cm from the anal verge with erythema, friability and superficial ulcerations suspicious for ischemic colitis/inflammatory bowel disease Right colon and rectum appeared normal RECOMMENDATIONS: Findings of this examination were discussed with the patient [as well as her family. She was advised to follow with the biopsy results. She'll be seen in office in one to 2 weeks.
[2022-05-08 10:34] VITALS: BP 116/65; PULSE 63; RESP 15
== END 2022-05-08 11:00 | disposition home or self-care (01) ==
LOC: ORWHC2ENDO 08:24
PROVIDERS: ATTEND Internal Medicine Gastroenterology
DX: K51.90 Ulcerative colitis, unspecified, without complications (principal); K55.9 Vascular disorder of intestine, unspecified; K62.89 Other specified diseases of anus and rectum; E78.5 Hyperlipidemia, unspecified; G47.33 Obstructive sleep apnea (adult) (pediatric); F32.A Depression, unspecified; Z88.8 Allergy status to other drugs, medicaments and biological substances; Z79.899 Other long term (current) drug therapy
CPT/HCPCS: 88305; 45380; J2704; J2001

== ENCOUNTER → 2022-06-08 | Outpatient (CLI) | payer MEDICAID ==
--- NOTE | 2022-06-09 15:42 | CT ---
CT angiogram of the abdomen and pelvis HISTORY: Acute ischemia large intestine, abnormal CT helical acquisition obtained from the lung bases through the pelvis pre and post administration of 10 0 cc Isovue-370 IV. Three-dimensional reconstructions were performed on an alternate workstation and reviewed. Automated exposure control for dose reduction, DLP 1036.[address] scan 03/02/2022 Lung bases show no pleural or pericardial effusion, no evident mass. ABDOMEN: The abdominal aorta shows normal caliber. There is no evident dissection. No aneurysm. Some mild atheromatous changes present. The celiac axis, superior mesenteric artery, renal arteries, infer ior mesenteric artery are patent. Common iliac, internal and external iliac arteries are widely paten t. Common femoral arteries, proximal deep and superficial femoral arteries are patent. The liver, gallbladder, spleen, adrenal glands, kidneys, and pancreas are within normal limits. No re troperitoneal adenopathy, pneumoperitoneum, or ascites. No evident bowel obstruction. Urinary bladder is somewhat contracted and shows a thickened wall. There is thickening of the rectosi gmoid junction. Sigmoid colon shows a questionable thickened wall. Questionable caliber change of the colon seen at the level of the splenic flexure appears less conspicuous, axial image #70 of series 9 , coronal image #64 series 12. Previously identified inflammatory changes within the abdomen have res olved. The appendix is normal. Uterus and adnexal structures within normal limits. No pelvic adenopat hy or free fluid. IMPRESSION: Nonspecific thickening of the sigmoid colon as described with questionable caliber change at the splenic flexure.
== END | disposition home or self-care (01) ==
LOC: RADCTMAIN 15:09
PROVIDERS: ATTEND Internal Medicine Gastroenterology
DX: K63.89 Other specified diseases of intestine (principal)
CPT/HCPCS: 74174; Q9967

== ENCOUNTER → 2022-07-09 | Outpatient (CLI) | payer MEDICAID ==
--- NOTE | 2022-07-09 22:47 | MR ---
EXAMINATION TYPE: MR lumbar spine wo con DATE OF EXAM: 07/09/2022 8:05 PM COMPARISON: MR lumbar spine 06/03/2019. CLINICAL INDICATION:Female, 57 years old with history of M54.50 LOW BACK PAIN; TECHNIQUE: Multi planar, multi sequence imaging was performed utilizing: T1-weighted, T2-weighted, a nd turbo inversion recovery imaging of the lumbar spine. IV Contrast: None. FINDINGS: Alignment: The lumbar vertebral bodies have preserved heights. There is now grade 1 anterolisthesis o f L5 on S1. Bilateral spondylolysis is present. Cord: The conus medullaris and the distal spinal cord appear unremarkable with regards to their signa l intensity and morphology. Bones/Discs: Scattered high T1 and high T2 signal areas throughout the visualized osseous structures likely represent benign vertebral body hemangiomas versus focal fat. Scattered Modic endplate changes worse at L5-S1. This is progressed from prior in 2019. Reactive bone marrow changes are seen at the adjoining endplates of L5 and S1. Scattered disc desiccation is present. L1-L2: No evidence of significant spinal canal stenosis or neural foraminal stenosis. L2-L3: Disc bulge and facet joint arthropathy result in mild bilateral neural foraminal stenosis. The spinal canal is patent. L3-L4: Disc bulge and facet joint arthropathy result in mild to moderate bilateral neural foraminal s tenosis. The spinal canal is patent. L4-L5: Disc bulge and facet joint arthropathy result in moderate right and mild left neural foraminal stenosis. The spinal canal is patent. L5-S1: Disc uncovering with facet joint arthropathy from grade 1 anterolisthesis results in no signif icant spinal canal stenosis. There is moderate to severe bilateral neural foraminal stenosis. Other findings: None. IMPRESSION: 1. Grade 1 anterolisthesis of L5 on S1 with bilateral spondylolysis which results in moderate to sev ere bilateral neural foraminal stenosis. 2. No evidence of significant high-grade spinal canal stenosis. 3. Diffuse red marrow conversion can be seen in the setting of tobacco abuse, anemia, or myeloprolif erative disorder.
== END | disposition home or self-care (01) ==
LOC: RADMRIMAIN 19:26
PROVIDERS: ATTEND Orthopaedic Surgery Orthopaedic Surgery of the Spine
DX: M41.85 Other forms of scoliosis, thoracolumbar region (principal); M43.16 Spondylolisthesis, lumbar region; M47.816 Spondylosis without myelopathy or radiculopathy, lumbar region; M48.061 Spinal stenosis, lumbar region without neurogenic claudication; M99.73 Connective tissue and disc stenosis of intervertebral foramina of lumbar region
CPT/HCPCS: 72148

== ENCOUNTER → 2022-07-25 | Outpatient (CLI) | payer MEDICAID ==
[2022-07-25 08:24] VITALS: BP 143/82; PULSE 96; RESP 18; TEMP 98
--- NOTE | 2022-07-25 14:41 | P.PAINPG ---
PQRS Measure Charge Sheet Comment: HISTORY OF PRESENT ILLNESS: 57 yr old female as a referral from Dr Carlton presents today w severe and chronic LBP secondary to anterolisthesis, disc bulges and facet arthropathy without myelopathy for evaluation. Pt states pain level is at 8/10 in intensity when laying supine on her back, constant, localized in the center of the mid to lower lumbar spine, stabbing in character w shooting pain towards the BLEs, R>L. Pain is slightly alleviated by medications (tramadol, naproxen, Tylenol arthritis), Lidoderm patches, heat, PT 3 years ago which was minimally effective, repositioning and rest. PMH: Hyperlipidemia, MDD, OA, Anxiety PSH: Cervical Discectomy & Fusion, Tubal Ligation, Uterine Ablation, LLE Vein Stripping, R Breast Biopsy SH: Never smoker, Occasional ETOH use, No illicit drug use FH: Mo- Lung CA. All: See list Meds: See list REVIEW OF ORGAN SYSTEMS: CONSTITUTIONAL: No fevers or chills. No recent weight loss. NEUROLOGICAL: + numbness and tingling along the distal extremities. No seizure disorders or headaches. MUSCULOSKELETAL: + pain PSYCHIATRIC: Denies current depression or suicidal thoughts. Physical Examinations : Constitutional : Cooperative , not in acute distress . Neurologic : Cranial nerve II to XII intact. No focal neurological deficits. Psychiatric : alert & oriented x 3. Matching mood & appropriate affect. Judgment & insight intact. Musculoskeletal : Cervical Spine Motor strength in the deltoid and biceps: Normal right side. Normal Left side Motor strength biceps and the wrist extensors: Normal right side . Normal left side Motor strength in the triceps muscle: Normal right side. Normal left side Deep tendon reflexes: Normal at the biceps. Normal at Brachioradialis. Normal at triceps Vertebral body tenderness to deep palpation over Cervical facet loading test: positive bilaterally Spurling test: positive bilaterally Neck distraction test: positive bilaterally Nida sign: positive bilaterally Lumbar spine Motor strength lower extremities ,thigh and legs 5/5 Right side , 5/5 Left side Deep tendon reflexes : Normal Knee Jerk. Normal Ankle Jerk Vertebral body tenderness over L5 Lumbar facet Loading Test: positive Right / positive Left Range of motion of the lumbar spine Flexion 30 degrees, extension 10 degrees Straight Leg Raise test: Left/ Right positive at degree Veda test: positive right / positive left. Severe tenderness over the Sacroiliac joint on the Right / Left sides Gaenslen test: positive bilaterally Seated flexion test: positive bilaterally. Sacral spine : Severe tenderness over the Sacroiliac joint: right side / left side Range of motion: Flexion of the lumbar spine <60 degrees Range of motion: Extension of the lumbar spine <20 degrees Gaenslen's Test positive Raza's Test positive Veda test: positive right side / left side Thigh Thrust Test Sacral Thrust Test Imaging: MRI without contrast of the lumbar spine from 07/09/22 reviewed Assessment/ Plan : Lumbar anterolisthesis, lumbar spondylosis Recommendation LESI L5-S1. May need a series of injections, up to 3 within a 6 month timeframe, for optimal pain relief. Risks, benefits of procedure discussed and patient verbalized understanding. Admits to aspirin or anti- coagulant use or medical history of diabetes. Protocol for discontinuation/ continuation of medications tyrone procedure discussed. All questions answered. I have spent greater than 30 minutes on patient care today. Dr Lawson was available by phone for the evaluation of this patient. The time was used to review the medical records including relevant urine studies and Prescription history (MAPs), review of the available imaging, evaluation and examination of the patient, coordination of care with the medical staff and if applicable referring physicians, as well as creation of the medical record PQRS Narrative: Smoking Status Never smoker Home Medications: Ambulatory Orders Acetaminophen [Tylenol Arthritis] 650 mg PO Q6H PRN 01/11/17 Cholecalciferol [Vitamin D3] 50 mcg PO DAILY 01/11/17 Atorvastatin [Lipitor] 10 mg PO HS 02/04/20 Naproxen [Naprosyn] 500 mg PO BID 02/04/20 Escitalopram [Lexapro] 20 mg PO QAM 05/07/22 Melatonin [Melatonin ER] 10 mg PO HS 05/07/22 buPROPion HCL [buPROPion HCL Xl] 150 mg PO QAM 05/07/22 methylPREDNISolone Dose Pack [Medrol Dose Pack] 4 mg PO DIRECTED 05/07/22 HYDROcodone/APAP 5-325MG [[place] 5-325] 1 tab PO Q8HR PRN 3 Days #9 tab 07/25/22 traMADol HCL 07/25/22 Controlled Substance Measures - Controlled Substance Measures Is patient prescribed a controlled substance at discharge?: Yes When asked, does pt state using other controlled substances?: Yes If prescribed controlled substance>3 days was MAPS reviewed?: Yes If Rx opioid, was Start Talking consent form obtained?: Yes Was information provided regarding opioid addiction?: Yes
== END ==
LOC: PNWHC3 07:25
PROVIDERS: ATTEND Specialist
DX: M47.816 Spondylosis without myelopathy or radiculopathy, lumbar region (principal); M43.16 Spondylolisthesis, lumbar region; Z79.01 Long term (current) use of anticoagulants; E11.9 Type 2 diabetes mellitus without complications; Z88.8 Allergy status to other drugs, medicaments and biological substances
CPT/HCPCS: 99211

== ENCOUNTER 2022-08-28 07:22 | Day surgery (SDC) | payer MEDICAID ==
[2022-08-28] MEDS ORDERED: LACTATED RINGERS 1,000 ML IV SCH (07:43)
[2022-08-28] MEDS ORDERED: LIDOCAINE 1% (10MG/ML) FOR IV START INTRADERMA PRN (07:43)
[2022-08-28 07:54] VITALS: RESP 16; TEMP 97.3
[2022-08-28] MEDS ORDERED: fentaNYL (PF) 50 MCG/ML 2 ML AMP ONE (08:08)
[2022-08-28] MEDS ORDERED: MIDAZOLAM 2 MG/2 ML VIAL ONE (08:08)
[2022-08-28] MEDS ORDERED: methylPREDNISolone ACETATE 80 MG/ML 1 ML VIAL ONE (08:08)
[2022-08-28] MEDS ORDERED: IOPAMIDOL M200 10 ML VIAL ONE (08:08)
--- NOTE | 2022-08-28 08:20 | P.PCN ---
Date of Procedure: 08/28/22 Procedure(s) Performed: PREOPERATIVE DIAGNOSIS: 1- Lumbar anterolisthesis 2-Lumbar spondylosis with Facet arthropathy without myelopathy. 3-lumbar spinal stenosis POSTOPERATIVE DIAGNOSIS: Same as preop diagnosis. PROCEDURE 1. Lumbar epidural steroid injection under fluoroscopic guidance at the L5-S1 level. (Fluoroscopy imaging was available in radiology department) 2. Lumbar epidurogram. ANESTHESIA: moderate sedation with intravenous Versed 2 mg ,and fentanyle 50 Mcg Sedation start time : 08:11 Sedation end time : 08:18 EBL: Minimal PROCEDURE INDICATION: The patient with low back pain and radiculitis symptoms unresponsive to conservative treatment. Fluoroscopy was used to optimize visualization of the needle placement and to maximize safety. PROCEDURE DESCRIPTION / TECHNIQUE: The patient was seen and identified in the preoperative area. Risks, benefits, complications including but not limited to infections ,bleeding ,allergic reaction to the medications ,nerve damage and not complete pain releife , and alternatives were discussed with the patient. The patient agreed to proceed with the procedure and signed the consent. IV was started, and vital signs were stable. Patient was taken to the OR and time out was completed. The patient was placed in the prone position on procedure table and a pillow was placed under the abdomen to reduce lumbar lordosis. The lumbosacral area was prepped and draped in the usual sterile fashion.ere closely monitored during the procedure. Conscious sedation was used during the procedure to decrease patients anxiety. Vital signs was monitered during the entire procedure. Using anterior-posterior fluoroscopy, the L5-S1 interlaminar space was identified and the skin over this site was marked and then infiltrated with 1% lidocaine subcutaneously. Subsequently, a 20-gauge Tuohy epidural needle was inserted and advanced toward the epidural space using the ``Loss of resistance technique and guided by AP and lateral fluoroscopy. The correct needle position in the epidural space was verified with the injection of 2 mL of the water soluble contrast dye Isovue 200 contrast and observing an excellent epidurogram with the epidural spread of the dye, after negative aspiration for blood and CSF and in the absence of paresthesias. Again after negative aspiration, a 6 ml mixture containing 80 mg of Depo-medrol ( Preservetive Free ), and 2 ml of preservative free Normal Saline, and 2 ml of preservative free lidocaine 1% solution was injected and a washout of epidurogram was seen. Needle was withdrawn intact, skin was cleansed, and bandages were applied. COMPLICATIONS: None DISPOSITION / PLANS: The patient was placed in a supine position and transferred to the recovery area in a stable condition for observation. There was no evidence of lower extremity motor or sensory deficit after the procedure. Patient was discharged from the recovery room after meeting discharge criteria. Home discharge instructions were given to the patient by the staff. The patient was reexamined prior to discharge. The patient will schedule a follow up in the clinic in 2-4 weeks.
[2022-08-28] MEDS ORDERED: IV FLUID CONTINUATION 1,000 ML IV ONE (08:24)
[2022-08-28 08:44] VITALS: BP 123/61; PULSE 65
--- NOTE | 2022-08-28 09:49 | FL ---
EXAMINATION TYPE: FL guided pain mgmt statistic DATE OF EXAM: 08/28/2022 CLINICAL HISTORY: Low back pain. TECHNIQUE: Fluoroscopy. COMPARISON: None. FINDINGS: Fluoroscopic guidance was provided during pain relief procedure performed by Dr. Corral. A total of 4 seconds of fluoroscopic time was utilized during the procedure and 0 spot images are ac quired. IMPRESSION: As Above.
== END 2022-08-28 08:48 | disposition home or self-care (01) ==
LOC: ORPAIN 07:22
PROVIDERS: ATTEND Specialist
DX: M47.26 Other spondylosis with radiculopathy, lumbar region (principal); M48.061 Spinal stenosis, lumbar region without neurogenic claudication; M43.16 Spondylolisthesis, lumbar region; Z88.8 Allergy status to other drugs, medicaments and biological substances
CPT/HCPCS: 62323; J2250; J1040; J3010; Q9966

== ENCOUNTER → 2022-09-28 | Outpatient (CLI) | payer MEDICAID ==
--- NOTE | 2022-09-28 10:56 | XR ---
EXAMINATION TYPE: XR chest 2V DATE OF EXAM: 09/28/2022 COMPARISON: 07/30/15 HISTORY: Shortness of breath TECHNIQUE: Frontal and lateral views of the chest are obtained. FINDINGS: Scattered senescent parenchymal changes noted. Hyperinflation compatible with COPD. No evidence for infiltrate. No evidence for atelectasis. Heart size is stable. Mediastinal structures are stable and grossly unremarkable. No evidence for hilar prominence. Degenerative changes dorsal spine. IMPRESSION: 1. No evidence for acute pulmonary disease.
[2022-09-28 11:36] LABS: INR 0.9 (<1.2); Partial Thromboplastin Time 25.8 sec (22.0-30.0); Prothrombin Time 9.7 sec (9.0-12.0)
[2022-09-28 14:45] LABS: Basophils # (A) 0.04 X 10*3/uL (0.00-0.10); Basophils % (A) 0.7 %; Eosinophils # (A) 0.19 X 10*3/uL (0.04-0.35); Eosinophils % (A) 3.4 %; HCT 35.7 % (37.2-46.3); HGB 11.4 g/dL (12.0-15.0); Immature Grans, Automated 0.2 %; Lymphocytes # (A) 1.56 X 10*3/uL (0.90-5.00); Lymphocytes % (A) 28.2 %; MCH 29.5 pg (27.0-32.0); MCHC 31.9 g/dL (32.0-37.0); MCV 92.5 fL (80.0-97.0); Mean Platelet Volume 8.9 fL (9.5-12.2); Monocytes # (A) 0.45 X 10*3/uL (0.20-1.00); Monocytes % (A) 8.1 %; NRBC Per 100 WBC 0 /100 WBCS (0.0-0.0); Neutrophils # (A) 3.28 X 10*3/uL (1.80-7.70); Neutrophils % (A) 59.4 %; Platelet Count 375 X 10*3/uL (140-440); RBC 3.86 X 10*6/uL (4.10-5.20); RDW 13.3 % (11.5-14.5); WBC 5.53 X 10*3/uL (4.50-10.00)
[2022-09-28 18:33] LABS: African American GFR (CKD) 101.5 (60.0-200.0); BUN/Creat Ratio 12.87 Ratio (12.00-20.00); Blood Urea Nitrogen 9.6 mg/dL (9.0-27.0); Calcium 9.2 mg/dL (8.7-10.3); Carbon Dioxide 25.6 mmol/L (20.0-27.5); Non-African American GFR(CKD) 87.5 (60.0-200.0)
[2022-09-28 19:02] LABS: Appearance,Urine Clear (Clear); Bilirubin,Urine Negative (Negative); Blood,Urine Negative (Negative); Color,Urine Yellow (Yellow); Ketones,Urine Negative (Negative); Nitrite,Urine Negative (Negative); PH, Urine 6.5 (5.0-8.0); Specific Gravity,Urine 1.014 (1.001-1.030); Urobilinogen,Urine 0.2 (0.2,1.0)
== END | disposition home or self-care (01) ==
LOC: LABPAT 10:17
PROVIDERS: ATTEND Orthopaedic Surgery Orthopaedic Surgery of the Spine
DX: Z01.818 Encounter for other preprocedural examination (principal); M48.061 Spinal stenosis, lumbar region without neurogenic claudication; R06.02 Shortness of breath; R00.1 Bradycardia, unspecified
CPT/HCPCS: 36415; 71046; 80048; 81003; 85025; 85610; 85730; 87070; 93005

== ENCOUNTER → 2022-11-23 | Outpatient (CLI) | payer MEDICAID ==
[2022-11-23 10:52] LABS: Basophils # (A) 0.04 X 10*3/uL (0.00-0.10); Basophils % (A) 0.8 %; Eosinophils # (A) 0.13 X 10*3/uL (0.04-0.35); Eosinophils % (A) 2.6 %; HCT 38.4 % (37.2-46.3); HGB 11.6 g/dL (12.0-15.0); Immature Grans, Automated 0 %; Lymphocytes # (A) 1.74 X 10*3/uL (0.90-5.00); Lymphocytes % (A) 34.9 %; MCH 28.1 pg (27.0-32.0); MCHC 30.2 g/dL (32.0-37.0); Mean Platelet Volume 9.1 fL (9.5-12.2); Monocytes # (A) 0.46 X 10*3/uL (0.20-1.00); Monocytes % (A) 9.2 %; NRBC Per 100 WBC 0 /100 WBCS (0.0-0.0); Neutrophils # (A) 2.61 X 10*3/uL (1.80-7.70); Neutrophils % (A) 52.5 %; Platelet Count 384 X 10*3/uL (140-440); RBC 4.13 X 10*6/uL (4.10-5.20); RDW 13.2 % (11.5-14.5); WBC 4.98 X 10*3/uL (4.50-10.00)
[2022-11-23 11:16] LABS: ALT 16 U/L (8-44); AST 15 U/L (13-35); African American GFR (CKD) 109.9 (60.0-200.0); Albumin 4.4 g/dL (3.8-4.9); Albumin/Globulin Ratio 1.83 (1.60-3.17); Alkaline Phosphatase 96 U/L (41-126); BUN/Creat Ratio 16.43 Ratio (12.00-20.00); Blood Urea Nitrogen 11.5 mg/dL (9.0-27.0); Calcium 9.7 mg/dL (8.7-10.3); Carbon Dioxide 23.9 mmol/L (20.0-27.5); Chloride 101 mmol/L (96-109); Chol/HDL Ratio 2.22 Ratio; Globulin 2.4 g/dL (1.6-3.3); Glucose 89 mg/dL (70-110); LDL Cholesterol,Calculated 77.5 mg/dL (0.0-131.0); Non-African American GFR(CKD) 94.8 (60.0-200.0); Potassium 4.8 mmol/L (3.5-5.5); Sodium 137 mmol/L (135-145); Total Bilirubin <0.15 mg/dL (0.30-1.20); Total Protein 6.8 g/dL (6.2-8.2); VLDL Calculation 11.46 mg/dL (5.00-40.00)
--- NOTE | 2022-11-27 10:00 | MM ---
Reason for Exam: Screening (asymptomatic). Last mammogram was performed 3 year(s) and 0 month(s) ago. Patient History: Menarche at age 11. First Full-Term at age 23. Postmenopausal. Hormonal Contraceptives for 5 years from age 15 until age 20. Core Biopsy on the Right side. 02/22/2000, Benign Stereotactic Core Biopsy on the right side. Maternal cousin had breast cancer, age 40. Maternal aunt had breast cancer, age 50. Risk Values: Eva 5 year model risk: 2.3%. NCI Lifetime model risk: 12.2%. Prior Study Comparison: 03/27/2017 Bilateral Screening Mammogram, [facility]. 03/28/2018 Bilateral Screening Mammogram, [facility]. 11/11/2019 Bilateral Screening Mammogram, [facility]. Tissue Density: There are scattered fibroglandular densities. Findings: Analyzed By CAD. Pattern appears symmetrical and stable. No significant interval change is evident. Core marker is within the right breast. No suspicious groups of microcalcifications, spiculated or lobular masses, architectural distortion or other secondary signs of malignancy are mammographically apparent. Overall Assessment: Benign, BI-RAD 2 Management: Screening Mammogram of both breasts in 1 year. A negative mammogram report should not preclude additional follow up of suspicious palpable abnormalities. Patient should continue monthly self breast exam. A clinical breast exam by your physician is recommended on an annual basis and results should be correlated with mammographic findings. Electronically signed and approved by: Reggie Trinidad D.O. Radiologis
== END | disposition home or self-care (01) ==
LOC: RADMAMWWP 07:02
PROVIDERS: ATTEND Obstetrics & Gynecology
DX: Z12.31 Encounter for screening mammogram for malignant neoplasm of breast (principal); Z00.00 Encounter for general adult medical examination without abnormal findings; E78.5 Hyperlipidemia, unspecified; K52.9 Noninfective gastroenteritis and colitis, unspecified; R73.9 Hyperglycemia, unspecified; Z78.0 Asymptomatic menopausal state; Z80.3 Family history of malignant neoplasm of breast
CPT/HCPCS: 77063; 77067; 80053; 80061; 83036; 84439; 84443; 85025

== ENCOUNTER → 2023-08-07 | Outpatient (CLI) | payer MEDICAID ==
[2023-08-07 11:21] LABS: ALT 17 U/L (8-44); AST 15 U/L (13-35); Albumin 4.4 g/dL (3.8-4.9); Alkaline Phosphatase 63 U/L (41-126); BUN/Creat Ratio 15.86 Ratio (12.00-20.00); Blood Urea Nitrogen 11.1 mg/dL (9.0-27.0); Calcium 9.3 mg/dL (8.7-10.3); Carbon Dioxide 25.5 mmol/L (21.6-31.8); Chloride 99 mmol/L (96-109); Globulin 2.2 g/dL (1.6-3.3); Glucose 92 mg/dL (70-110); LDL Cholesterol,Calculated 74.9 mg/dL (0.0-131.0); Potassium 5.2 mmol/L (3.5-5.5); Sodium 133 mmol/L (135-145); T4, Free (Free Thyroxine) 0.96 ng/dL (0.80-1.80); Total Bilirubin 0.4 mg/dL (0.3-1.2); Total Protein 6.6 g/dL (6.2-8.2); VLDL Calculation 12.68 mg/dL (5.00-40.00)
== END | disposition home or self-care (01) ==
LOC: LABWHC1 07:26
PROVIDERS: ATTEND Family Medicine
DX: Z00.00 Encounter for general adult medical examination without abnormal findings (principal)
CPT/HCPCS: 36415; 80053; 80061; 83036; 84439; 84443

== ENCOUNTER 2023-11-16 17:39 | Emergency (ER) | payer MEDICAID ==
--- NOTE | 2023-11-16 17:59 | ED ---
General Adult HPI - General Chief complaint: Head Injury Stated complaint: fell facial injury Time Seen by Provider: 11/16/23 17:48 Source: patient Mode of arrival: wheelchair Limitations: no limitations - History of Present Illness Initial comments: 58-year-old female presents to the ED status post mechanical fall. Patient states that she tripped and fell landing face first on the cement. Patient reports that she did attempt to catch herself but was not able to. No LOC. Tetanus status unknown. No other injuries at this time. No other complaints. - Related Data Home Medications Medication Instructions Recorded Confirmed Acetaminophen [Tylenol Arthritis] 650 mg PO Q6H PRN 01/11/17 10/04/22 Atorvastatin [Lipitor] 10 mg PO HS 02/04/20 10/04/22 Naproxen [Naprosyn] 500 mg PO BID 02/04/20 10/04/22 Escitalopram [Lexapro] 20 mg PO QAM 05/07/22 10/04/22 Melatonin [Melatonin ER] 10 mg PO HS PRN 05/07/22 10/04/22 buPROPion HCL [buPROPion HCL Xl] 150 mg PO QAM 05/07/22 10/04/22 traMADol HCL 50 mg PO Q6H PRN 07/25/22 10/04/22 Calcium Carbonate/Vitamin D3 1 each PO DAILY 10/04/22 10/04/22 [Calcium 500Mg-Vit D3 15 mcg (600 unit)] Docusate [Colace] 200 mg PO HS 10/04/22 10/04/22 Previous Rx's Medication Instructions Recorded Docusate [Colace] 100 mg PO BID #60 capsule 10/12/22 HYDROcodone/APAP 5-325MG [[place] 1 tab PO Q4HR PRN 7 Days #30 tab 10/12/22 5-325] Cephalexin [Keflex] 500 mg PO Q6HR 7 Days #28 cap 11/16/23 Allergies Allergy/AdvReac Type Severity Reaction Status Date / Time dextromethorphan Allergy drops Verified 10/10/22 07:26 heart rate and passes out Review of Systems ROS Statement: Those systems with pertinent positive or pertinent negative responses have been documented in the HPI. ROS Other: All systems not noted in ROS Statement are negative. 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 History of Any Multi-Drug Resistant Organisms: None Reported Past Surgical History: Back Surgery, Tubal Ligation, Uterine Ablation Additional Past Surgical History / Comment(s): CERVICAL DISCECTOMY & FUSION, VEIN STRIPPING LEFT LEG, RIGHT BREAST BX, COLONOSCOPY Past Anesthesia/Blood Transfusion Reactions: No Reported Reaction Additional Past Anesthesia/Blood Transfusion Reaction / Comment(s): no hx blood transfusion Past Psychological History: Anxiety Smoking Status: Never smoker - Past Family History Mother Family Medical History: Cancer Additional Family Medical History / Comment(s): LUNG CANCER- at age 58 Father Family Medical History: Congestive Heart Failure (CHF), COPD Additional Family Medical History / Comment(s): at age 75 General Exam - General Exam Comments Initial Comments: Visual Physical Exam Vital signs reviewed General: Well-appearing, nontoxic, no acute distress. Eyes: PERRLA, EOMI ENT: Airway patent Chest: Nonlabored breathing Skin: No visual rash, normal skin tone Neuro: Alert and oriented 3 Musculoskeletal: No gross abnormalities Limitations: no limitations General appearance: alert, in no apparent distress Head exam: Present: other (Patient has a skin tear to the bridge of her nose and lateral to this on the right side is another skin tear. Patient does have some ecchymosis underneath the right eye however no barry signs.) Neck exam: Present: normal inspection Respiratory exam: Present: normal lung sounds bilaterally Cardiovascular Exam: Present: regular rate, normal rhythm GI/Abdominal exam: Present: soft Extremities exam: Present: other (Full active range of motion of bilateral upper lower extremities. Radial pulses 2+.) Back exam: Present: other (No midline spinal tenderness to palpation.) Neurological exam: Present: alert, oriented X3 Skin exam: Present: warm, dry Course Vital Signs 11/16/23 17:50 Temperature 97.8 F Pulse Rate 84 Respiratory 16 Rate Blood Pressure 200/107 O2 Sat by Pulse 99 Oximetry Medical Decision Making - Medical Decision Making Quicknote portion performed. Signed Shilo Patel PA-C Was pt. sent in by a medical professional or institution (DALIA Roman, REPORT CLERK, urgent care, hospital, or senior care...) When possible be specific @ -No Did you speak to anyone other than the patient for history (EMS, parent, family, police, friend...)? What history was obtained from this source @ -No Did you review nursing and triage notes (agree or disagree)? Why? @ -I reviewed and agree with nursing and triage notes Were old charts reviewed (outside hosp., previous admission, EMS record, old EKG, old radiological studies, urgent care reports/EKG's, senior care records)? Report findings @ -No old charts were reviewed Differential Diagnosis (chest pain, altered mental status, abdominal pain women, abdominal pain men, vaginal bleeding, weakness, fever, dyspnea, syncope, headache, dizziness, GI bleed, back pain, seizure, CVA, palpatations, mental health, musculoskeletal)? @ -Differential Musculoskeletal Muscular strain, contusion, ligament sprain, fracture, arthritis, septic arthritis, bursitis, cellulitis, muscle spasm, nerve compression, DVT, arterial occlusion, herpes zoster, electrolyte abnormality, tumor.... This is not meant to be in all inclusive list EKG interpreted by me (3pts min.). @ -None X-rays interpreted by me (1pt min.). @ -None done CT interpreted by me (1pt min.). @ -CT interpreted by me. CT brain shows no evidence of acute hemorrhage or other acute finding. CT facial bones does show acute mildly displaced/depressed nasal bone fracture. U/S interpreted by me (1pt. min.). @ -None done What testing was considered but not performed or refused? (CT, X-rays, U/S, labs)? Why? @ -None What meds were considered but not given or refused? Why? @ -None Did you discuss the management of the patient with other professionals (professionals i.e. , PA, REPORT CLERK, lab, RT, psych nurse, social service liaison, insulation applicator, teacher, corporate trust officer, case planner)? Give summary @ -No Was smoking cessation discussed for >3mins.? @ -No Was critical care preformed (if so, how long)? @ -No Were there social determinants of health that impacted care today? How? (Homelessness, low income, unemployed, alcoholism, drug addiction, transportation, low edu. Level, literacy, decrease access to med. care, usp, rehab)? @ -No Was there de-escalation of care discussed even if they declined (Discuss DNR or withdrawal of care, Hospice)? DNR status @ -No What co-morbidities impacted this encounter? (DM, HTN, Smoking, COPD, CAD, Cancer, CVA, ARF, Chemo, Hep., AIDS, mental health diagnosis, sleep apnea, morbid obesity)? @ -None Was patient admitted / discharged? Hospital course, mention meds given and route, prescriptions, significant lab abnormalities, going to OR and other pertinent info. @ -Discharge 58-year-old female presenting to the ED status post mechanical fall. I initially saw the patient myself in triage and performed a quick note. No blood thinner use however on examination did have ecchymosis underneath the right eye potentially concerning for intracranial hemorrhage therefore CTs were obtained. CT brain showed no evidence of acute finding. CT facial bone does show an acute mildly displaced/depressed nasal bone fracture. On examination she did also have a skin tear to this area that was actively bleeding. TXA irrigation used with successful control of bleeding. Gelfoam placed. Other wound was covered with bacitracin and dressed. Tetanus updated. Discharged home in stable condition with referral to see ENT. Also provided prescription for Keflex discussed return precautions with patient who verbalized agreement. Undiagnosed new problem with uncertain prognosis? @ -No Drug Therapy requiring intensive monitoring for toxicity (Heparin, Nitro, Insulin, Cardizem)? @ -No Were any procedures done? @ -No Diagnosis/symptom? @ -Status post mechanical fall, acute mildly displaced proximal nasal bone fracture Acute, or Chronic, or Acute on Chronic? @ -Acute Uncomplicated (without systemic symptoms) or Complicated (systemic symptoms)? @ -Uncomplicated Side effects of treatment? @ -No Exacerbation, Progression, or Severe Exacerbation? @ -No Poses a threat to life or bodily function? How? (Chest pain, USA, PA, pneumonia, PE, COPD, DKA, ARF, appy, cholecystitis, CVA, Diverticulitis, Homicidal, Suicidal, threat to staff... and all critical care pts) @ -No Disposition Clinical Impression: Fall, Nasal fracture Disposition: HOME SELF-CARE Condition: Good Instructions (If sedation given, give patient instructions): Concussion (ED), Nasal Fracture (ED) Additional Instructions: Please return to the Emergency Department if symptoms worsen or any other concerns. Please follow-up with your primary care provider and ENT. Prescriptions: Cephalexin [Keflex] 500 mg PO Q6HR 7 Days #28 cap Is patient prescribed a controlled substance at d/c from ED?: No Referrals: Rajesh Dallas DO [Primary Care Provider] - 1-2 days Sam Barriga MD [STAFF PHYSICIAN] - 1-2 days Time of Disposition: 20:00
--- NOTE | 2023-11-16 18:46 | CT ---
EXAMINATION TYPE: CT brain wo con CT DLP: 1296.4 mGycm, Automated exposure control for dose reduction was used. DATE OF EXAM: 11/16/2023 6:21 PM COMPARISON: None. CLINICAL INDICATION:Female, 58 years old with history of s/p mechanical fall. Nose/facial injury, Fal l with facial injury. TECHNIQUE: Brain: Axial CT images of the brain were obtained with coronal and sagittal reformats created and rev iewed. Contrast used: None. Oral contrast used: None. FINDINGS: Extra-axial spaces: No abnormal extra-axial fluid collections. Ventricular system: Within normal limits. Cerebral parenchyma: No increased attenuation to suggest acute intraparenchymal hemorrhage. The gra y-white matter interface appears maintained. Mild generalized brain atrophy. White matter unremarka ble by CT. Cerebellum: No acute abnormality. Mass effect: No evidence of mass effect or midline shift. Intracranial vasculature: Unremarkable Soft tissues: Mild soft tissue swelling suggested over the forehead and bridge of nose. Visualized orbits: Orbital contents appear grossly intact. Calvarium/osseous structures: No evidence of calvarial fracture. Please refer to maxillofacial CT for further description of findings. Paranasal sinuses and mastoid air cells: Clear. Mild deviation of the bony nasal septum towards the left with small osseous spur. Mild rightward deviation of the anterior soft tissue septal component. MRI is more sensitive for detecting acute processes such as infarct, and may be considered if clinica lly warranted. IMPRESSION: No acute intracranial CT abnormality.
--- NOTE | 2023-11-16 18:51 | CT ---
EXAMINATION TYPE: CT facial bones wo con CT DLP: 1296.4 mGycm, Automated exposure control for dose reduction was used. DATE OF EXAM: 11/16/2023 6:22 PM COMPARISON: Correlation with same day CT head. CLINICAL INDICATION:Female, 58 years old with history of fall; PHH, Fall with facial injury. TECHNIQUE: Multiple unenhanced axial CT images were obtained of the facial bones soft tissue and bone windows. Coronal, axial and sagittal reformatted images were also provided in soft tissue and bone windows and submitted for interpretation. Additional 3-D reformatted images were obtained on a [employer] workstation. FINDINGS: Mandible appears intact and the TMJs are normally aligned. Zygomatic arches are intact. There are acute appearing mildly displaced/depressed fractures of the nasal bones. Anterior nasal spi ne appears intact. Mild deviation towards the right of the anterior soft tissue nasal septum. Mild de viation of the bony nasal septum towards the left with small osseous spur. The other facial bones appear to be intact. There is no orbital fracture. No retrobulbar hematoma. Gl obes appear intact. There is mild soft tissue swelling over the bridge of the nose and extending slightly to the forehead . IMPRESSION: Acute mildly displaced/depressed nasal bones fractures.
[2023-11-16] MEDS: DIPH,PERTUS(ACELL)TETVAC-LF 0.5 ML VIAL IM ONE (19:40)
[2023-11-16] MEDS: BACITRACIN OINT 1 EACH PACKET TOPICAL ONE (19:41)
[2023-11-16] MEDS: TRANEXAMIC ACID 1,000 MG/10 ML VIAL IRRIGATION ONE (19:45)
[2023-11-16] MEDS: CEPHALEXIN 500MG STARTER PACK 4 CAP BTL PO STA (20:34)
[2023-11-16 21:03] VITALS: BP 138/85; PULSE 81; RESP 18; TEMP 97.9
== END 2023-11-16 20:38 | disposition home or self-care (01) ==
LOC: EC 17:39
DX: S02.2XXA Fracture of nasal bones, initial encounter for closed fracture (principal); S00.83XA Contusion of other part of head, initial encounter; Z88.8 Allergy status to other drugs, medicaments and biological substances; W01.0XXA Fall on same level from slipping, tripping and stumbling without subsequent striking against object, initial encounter
CPT/HCPCS: 70450; 70486; 90471; 90715; 99283

== ENCOUNTER → 2024-07-13 | Outpatient (CLI) | payer MEDICAID ==
[2024-07-13 10:15] LABS: HCT 37.3 % (37.2-46.3); HGB 11.8 g/dL (12.0-15.0); MCH 29.1 pg (27.0-32.0); MCHC 31.6 g/dL (32.0-37.0); MCV 91.9 FL (80.0-97.0); Mean Platelet Volume 9.2 FL (9.5-12.2); NRBC Per 100 WBC 0 X 10*3/uL (0.00-0.01); Platelet Count 334 X 10*3/uL (140-440); RBC 4.06 X 10*6/uL (4.10-5.20); RDW 13.5 % (11.5-14.5); WBC 4.11 X 10*3/uL (4.50-10.00)
[2024-07-13 10:16] LABS: Basophils # (A) 0.03 X 10*3/uL (0.00-0.10); Basophils % (A) 0.7 %; Eosinophils % (A) 2.4 %; Lymphocytes # (A) 1.34 X 10*3/uL (0.90-5.00); Lymphocytes % (A) 32.6 %; Monocytes # (A) 0.43 X 10*3/uL (0.20-1.00); Monocytes % (A) 10.5 %; Neutrophils % (A) 53.6 %
[2024-07-13 10:47] LABS: ALT 18 U/L (8-44); AST 20 U/L (13-35); Albumin 4.4 g/dL (3.8-4.9); Albumin/Globulin Ratio 2.32 Ratio (1.60-3.17); Alkaline Phosphatase 59 U/L (41-126); BUN/Creat Ratio 11.56 Ratio (12.00-20.00); Blood Urea Nitrogen 10.4 mg/dL (9.0-27.0); Calcium 9.3 mg/dL (8.7-10.3); Carbon Dioxide 25.4 mmol/L (21.6-31.8); Chloride 101 mmol/L (96-109); Chol/HDL Ratio 2.28 Ratio; Globulin 1.9 g/dL (1.6-3.3); Glucose 96 mg/dL (70-110); Potassium 4.9 mmol/L (3.5-5.5); Sodium 135 mmol/L (135-145); T4, Free (Free Thyroxine) 1.13 ng/dL (0.80-1.80); Total Bilirubin 0.3 mg/dL (0.3-1.2); Total Protein 6.3 g/dL (6.2-8.2); VLDL Calculation 13.26 mg/dL (5.00-40.00)
== END | disposition home or self-care (01) ==
LOC: LABWHC1 07:05
PROVIDERS: ATTEND Family Medicine
DX: Z00.00 Encounter for general adult medical examination without abnormal findings (principal); E78.5 Hyperlipidemia, unspecified; F32.A Depression, unspecified; K52.9 Noninfective gastroenteritis and colitis, unspecified
CPT/HCPCS: 36415; 80053; 80061; 82306; 83036; 84439; 84443; 85025

== ENCOUNTER → 2024-08-05 | Outpatient (CLI) | payer MEDICAID ==
--- NOTE | 2024-08-08 00:13 | BD ---
EXAMINATION TYPE: Axial Bone Density DATE OF EXAM: 08/05/2024 CLINICAL HISTORY: 59 years old Female. ICD-10 CODE: Z78.0 POST MENOPAUSAL WITHOUT HRT , Additional H istory: Height: 62" Weight: 196lbs FRAX RISK QUESTIONS: Alcohol (3 or more units per day): No Family History (Parent hip fracture): No Glucocorticoids (More than 3mos): No (Ex: prednisone, prednisolone, methylprednisolone, dexamethasone, and hydrocortisone). History of Fracture in Adulthood: No Secondary Osteoporosis: 1. Type 1 Diabetes: No 2. Hyperthyroidism: No 3. Menopause before 45: No 4. Malnutrition: No 5. Chronic liver disease: No Rheumatoid Arthritis: No Current Tobacco Use: No RISK FACTORS HISTORY OF: Hip Fracture (Right/Left): No Spine Fracture: No History of Wrist Fracture: No Surgery to Spine/Hip(right/left)/Wrist (right/left): Lumbar Fusion When: December 2022 MEDICATIONS: Thyroid Medications: No Osteoporosis Medications: No EXAM MEASUREMENTS: Bone mineral densitometry was performed using the [employer] System. Bone mineral density about the R hip (g/cm2): 1.100 Bone mineral density about the L hip (g/cm2): 1.107 T Score values are as follows: -----R Neck: -0.4 -----L Neck: -0.3 -----R Total: 0.7 -----L Total: 0.8 Z Score values are as follows: -----R Neck: 0.4 -----L Neck: 0.4 -----R Total: 1.1 -----L Total: 1.2 Baseline @MPH Bone mineral density about the L Wrist (g/cm2): 0.702 T Score values are as follows: -----Dist. R+U: 1.4 -----Prox. R+U: -0.1 -----Radius total: 0.5 Z Score values are as follows: -----Dist. R+U: 2.4 -----Prox. R+U: 0.9 -----Radius total: 1.5 Baseline @MPH FRAX%s: The graph provided illustrates a 6.1% chance for a major osteoporotic fx and a 0.2% chance fo r the hips probability for fx in 10 years time. IMPRESSION: Normal (Values between +1 and -1 indicate normal bone mass). Consider repeating this study in 5 year s or sooner if there is some new clinical indication. NOTE: T-SCORE=SD OF THE YOUNG ADULT MEAN. [facility], , 08/08/2024 12:11 AM
== END | disposition home or self-care (01) ==
LOC: RADBDWWP 07:12
PROVIDERS: ATTEND Family Medicine
DX: M81.8 Other osteoporosis without current pathological fracture (principal); Z78.0 Asymptomatic menopausal state; Z80.3 Family history of malignant neoplasm of breast
CPT/HCPCS: 77080

== ENCOUNTER → 2024-08-05 | Outpatient (CLI) | payer MEDICAID ==
--- NOTE | 2024-08-09 04:15 | MM ---
Reason for Exam: Screening (asymptomatic). Last mammogram was performed 1 year(s) and 9 month(s) ago. Patient History: Menarche at age 11. First Full-Term at age 23. Postmenopausal. Hormonal Contraceptives for 5 years from age 15 until age 20. Core Biopsy on the Right side. 02/22/2000, Benign Stereotactic Core Biopsy on the right side. Maternal cousin had breast cancer, age 40. Maternal aunt had breast cancer, age 50. Risk Values: Eva 5 year model risk: 2.5%. NCI Lifetime model risk: 11.6%. Prior Study Comparison: 03/28/2018 Bilateral Screening Mammogram, [facility]. 11/11/2019 Bilateral Screening Mammogram, [facility]. 11/23/2022 Bilateral MG 3D screening mammo w/cad, [facility]. Tissue Density: There are scattered areas of fibroglandular density. Findings: Analyzed By CAD. The pattern is symmetrical. Core marker is within the right breast. There is a small area of increased parenchymal density measuring approximately 0.5 cm located 3 cm lower inner quadrant. Additional evaluation with compression views recommended. Ultrasound may be required. Right breast:No suspicious groups of microcalcifications, spiculated or lobular masses, architectural distortion or other secondary signs of malignancy are mammographically apparent. Overall Assessment: Incomplete: need additional imaging evaluation, BI-RAD 0 Management: Diagnostic Mammogram of the left breast. Diagnostic Breast Ultrasound of the left breast. A negative mammogram report should not preclude additional follow up of suspicious palpable abnormalities. Patient should continue monthly self breast exam. A clinical breast exam by your physician is recommended on an annual basis and results should be correlated with mammographic findings. Note on Eva scores and lifetime risk: 1. A Eva score greater than 3% is considered moderate risk. If this is the case, consider specialist referral to assess eligibility for a risk reducing agent. 2. If overall lifetime risk for the development of breast cancer is 20% or higher, the patient may qualify for future screening with alternating mammogram and breast MRI. [facility], , 08/09/2024 4:11 AM. Electronically signed and approved by: Reggie Trinidad D.O. Radiologis
== END | disposition home or self-care (01) ==
LOC: RADMAMWWP 07:11
PROVIDERS: ATTEND Family Medicine
DX: Z12.31 Encounter for screening mammogram for malignant neoplasm of breast (principal); Z80.3 Family history of malignant neoplasm of breast; Z78.0 Asymptomatic menopausal state; R92.323 Mammographic fibroglandular density, bilateral breasts
CPT/HCPCS: 77063; 77067

== ENCOUNTER → 2024-08-13 | Outpatient (CLI) | payer MEDICAID ==
--- NOTE | 2024-08-13 10:41 | MM ---
Reason for Exam: Additional evaluation requested from abnormal screening. Last screening mammogram was performed less than 1 month ago. Patient History: Menarche at age 11. First Full-Term at age 23. Postmenopausal. Hormonal Contraceptives for 5 years from age 15 until age 20. Core Biopsy on the Right side. 02/22/2000, Benign Stereotactic Core Biopsy on the right side. Maternal cousin had breast cancer, age 40. Maternal aunt had breast cancer, age 50. Risk Values: Eva 5 year model risk: 2.5%. NCI Lifetime model risk: 11.6%. Prior Study Comparison: 11/11/2019 Bilateral Screening Mammogram, [facility]. 11/23/2022 Bilateral MG 3D screening mammo w/cad, [facility]. 08/05/2024 Bilateral MG 3D screening mammo w/cad, [facility]. Tissue Density: Left: There are scattered areas of fibroglandular density. Findings: Analyzed By CAD. Findings likely reflect a summation density. No persistent nodule or mass identified. Overall Assessment: Benign, BI-RAD 2 Management: Screening Mammogram of both breasts in 1 year. . Results were given to the patient verbally at the time of exam. Patient should continue monthly self-breast exams. A clinical breast exam by your physician is recommended on an annual basis. This exam should not preclude additional follow-up of suspicious palpable abnormalities. Note on Eva scores and lifetime risk: 1. A Eva score greater than 3% is considered moderate risk. If this is the case, consider specialist referral to assess eligibility for a risk reducing agent. 2. If overall lifetime risk for the development of breast cancer is 20% or higher, the patient may qualify for future screening with alternating mammogram and breast MRI. [facility], , 08/13/2024 10:39 AM. Electronically signed and approved by: Martinez Parks M.D. Radiologis
== END | disposition home or self-care (01) ==
LOC: RADMAMWWP 10:08
PROVIDERS: ATTEND Family Medicine
DX: R92.8 Other abnormal and inconclusive findings on diagnostic imaging of breast (principal); Z78.0 Asymptomatic menopausal state; Z80.3 Family history of malignant neoplasm of breast; R92.322 Mammographic fibroglandular density, left breast
CPT/HCPCS: 77061; 77065

== ENCOUNTER 2024-09-22 07:11 | Emergency (ER) | payer OTHER, MEDICAID ==
--- NOTE | 2024-09-22 08:00 | ED ---
General Adult HPI - General Chief complaint: Fall Stated complaint: Fall - [facility] Time Seen by Provider: 09/22/24 07:32 Source: patient, RN notes reviewed, old records reviewed Mode of arrival: ambulatory Limitations: no limitations - History of Present Illness Initial comments: Patient is a 59-year-old female who presents emergency department after injuring her right hand and wrist with a fall. Patient does work at a hospital. Tripped over a power cord for a portable computer upstairs. States she fell forward and landed primarily on her right hand and wrist along the ulnar bone. Patient denies hitting her head. Denies loss conscious. Is not on blood thinners. Presents for further evaluation of her right hand and wrist. Does have some abrasions there but states she is up-to-date on tetanus. Patient has a history of degenerative disc disease, vertigo. Has no other acute complaints. Presents for further evaluation. Patient declines any analgesia medications. - Related Data Home Medications Medication Instructions Recorded Confirmed Acetaminophen [Tylenol Arthritis] 650 mg PO Q6H PRN 01/11/17 10/04/22 Atorvastatin [Lipitor] 10 mg PO HS 02/04/20 10/04/22 Naproxen [Naprosyn] 500 mg PO BID 02/04/20 10/04/22 Escitalopram [Lexapro] 20 mg PO QAM 05/07/22 10/04/22 Melatonin [Melatonin Tr] 10 mg PO HS PRN 05/07/22 10/04/22 buPROPion HCL [buPROPion HCL Xl] 150 mg PO QAM 05/07/22 10/04/22 traMADol HCL 50 mg PO Q6H PRN 07/25/22 10/04/22 Calcium Carbonate/Vitamin D3 1 each PO DAILY 10/04/22 10/04/22 [Calcium 500Mg-Vit D3 15 mcg (600 unit)] Docusate [Colace] 200 mg PO HS 10/04/22 10/04/22 Previous Rx's Medication Instructions Recorded Docusate [Colace] 100 mg PO BID #60 capsule 10/12/22 HYDROcodone/APAP 5-325MG [[place] 1 tab PO Q4HR PRN 7 Days #30 tab 10/12/22 5-325] Cephalexin [Keflex] 500 mg PO Q6HR 7 Days #28 cap 11/16/23 Allergies Allergy/AdvReac Type Severity Reaction Status Date / Time dextromethorphan Allergy drops Verified 09/22/24 07:23 heart rate and passes out Review of Systems ROS Statement: Those systems with pertinent positive or pertinent negative responses have been documented in the HPI. Review of Systems: CONST: Denies fever EYES: Denies blurry vision ENT: Denies nasal congestion C/V: Denies Chest pain RESP: Denies shortness of breath GI: Denies abdominal pain : Denies dysuria SKIN: Denies rash. MSK: Endorses right wrist and hand pain. NEURO: Denies headache ROS Other: All systems not noted in ROS Statement are negative. 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 History of Any Multi-Drug Resistant Organisms: None Reported Past Surgical History: Back Surgery, Tubal Ligation, Uterine Ablation Additional Past Surgical History / Comment(s): CERVICAL DISCECTOMY & FUSION, VEIN STRIPPING LEFT LEG, RIGHT BREAST BX, COLONOSCOPY Past Anesthesia/Blood Transfusion Reactions: No Reported Reaction Additional Past Anesthesia/Blood Transfusion Reaction / Comment(s): no hx blood transfusion Past Psychological History: Anxiety Smoking Status: Never smoker Past Alcohol Use History: None Reported Past Drug Use History: None Reported - Past Family History Mother Family Medical History: Cancer Additional Family Medical History / Comment(s): LUNG CANCER- at age 58 Father Family Medical History: Congestive Heart Failure (CHF), COPD Additional Family Medical History / Comment(s): at age 75 General Exam - General Exam Comments Initial Comments: General: Appears in no acute distress. HEAD: Normal with no signs of head trauma. EYES: EOMI. ENT: Hearing grossly intact. RESPIRATORY: No respiratory distress. C/V: Regular rate and rhythm. ABD: Abdomen is nondistended. EXT: No obvious deformity. Normal range of motion. Tenderness to palpation over the distal right ulna as well as over the fifth MCP.Neurovascular intact throughout the right upper extremity. SKIN: Superficial abrasions over the ulnar aspect of the left wrist, left hand. No gaping wound. Bleeding is controlled. NEURO: Alert and oriented. Limitations: no limitations Course Vital Signs 09/22/24 07:21 Temperature 98.2 F Pulse Rate 76 Respiratory 20 Rate Blood Pressure 175/93 O2 Sat by Pulse 99 Oximetry Medical Decision Making - Medical Decision Making Was pt. sent in by a medical professional or institution (DALIA Roman, MACHINE TAPER, urgent care, hospital, or custodial...) When possible be specific @ -No Did you speak to anyone other than the patient for history (EMS, parent, family, police, friend...)? What history was obtained from this source @ -No Did you review nursing and triage notes (agree or disagree)? Why? @ -I reviewed and agree with nursing and triage notes Were old charts reviewed (outside hosp., previous admission, EMS record, old EKG, old radiological studies, urgent care reports/EKG's, custodial records)? Report findings @ -No old charts were reviewed Differential Diagnosis (chest pain, altered mental status, abdominal pain women, abdominal pain men, vaginal bleeding, weakness, fever, dyspnea, syncope, headache, dizziness, GI bleed, back pain, seizure, CVA, palpatations, mental health, musculoskeletal)? @ -Differential Musculoskeletal Muscular strain, contusion, ligament sprain, fracture, arthritis, septic arthritis, bursitis, cellulitis, muscle spasm, nerve compression, DVT, arterial occlusion, herpes zoster, electrolyte abnormality, tumor.... This is not meant to be in all inclusive list EKG interpreted by me (3pts min.). @ -None done X-rays interpreted by me (1pt min.). @ -Right hand and wrist x-rays negative for any obvious acute traumatic injury. CT interpreted by me (1pt min.). @ -None done U/S interpreted by me (1pt. min.). @ -None done What testing was considered but not performed or refused? (CT, X-rays, U/S, labs)? Why? @ -None What meds were considered but not given or refused? Why? @ -I offered analgesia medications however patient declines. She already has an ice pack. Did you discuss the management of the patient with other professionals (professionals i.e. DALIA Roman, MACHINE TAPER, lab, RT, psych nurse, social studies teacher, water superintendent, teacher, customs and border protection officer, geriatric case manager)? Give summary @ -No Was smoking cessation discussed for >3mins.? @ -No Was critical care preformed (if so, how long)? @ -No Were there social determinants of health that impacted care today? How? (Homelessness, low income, unemployed, alcoholism, drug addiction, transportation, low edu. Level, literacy, decrease access to med. care, [facility], rehab)? @ -No Was there de-escalation of care discussed even if they declined (Discuss DNR or withdrawal of care, Hospice)? DNR status @ -No What co-morbidities impacted this encounter? (DM, HTN, Smoking, COPD, CAD, Cancer, CVA, ARF, Chemo, Hep., AIDS, mental health diagnosis, sleep apnea, morbid obesity)? @ -None Was patient admitted / discharged? Hospital course, mention meds given and route, prescriptions, significant lab abnormalities, going to OR and other pertinent info. @ -Patient presents emergency department complaint of right wrist and hand pain after a fall. No head injuries, loss consciousness, blood thinners. Will obtain x-rays of the right hand and wrist. Patient declines analgesia medications. Exam is unremarkable. There are some superficial abrasions that do not require wound closure. Patient is up-to-date on tetanus. Vital signs within acceptable limits. X-rays negative for any obvious traumatic injury. I updated the patient. She will be discharged home at this time with an Te wrap. Recommended ice, rest, [id number] analgesia medications as needed. If pain persist, she can follow-up with her PCP and obtain repeat x-ray. Patient was in agreement this plan. Diagnosis is right wrist sprain. I instructed the patient to follow up with their PCP in the next 1-3 days. I explained that the patient should return to the emergency department if they experience any worsening symptoms. Strict return precautions were discussed with the patient. The patient expressed understanding of these instructions. I answered all questions that the patient had. The patient was discharged home in [good] condition with their prescriptions and follow up information. Undiagnosed new problem with uncertain prognosis? @ -No Drug Therapy requiring intensive monitoring for toxicity (Heparin, Nitro, Insulin, Cardizem)? @ -No Were any procedures done? @ -No Diagnosis/symptom? @ -Fall, right wrist sprain Acute, or Chronic, or Acute on Chronic? @ -Acute Uncomplicated (without systemic symptoms) or Complicated (systemic symptoms)? @ -Uncomplicated Side effects of treatment? @ -None Exacerbation, Progression, or Severe Exacerbation] @ -No Poses a threat to life or bodily function? @ -Unlikely Disposition Clinical Impression: Fall, Right wrist sprain Disposition: HOME SELF-CARE Condition: Good Instructions (If sedation given, give patient instructions): Fall Prevention (ED), Wrist Sprain (ED) Is patient prescribed a controlled substance at d/c from ED?: No Referrals: Rajesh Dallas DO [Primary Care Provider] - 1-2 days Time of Disposition: 08:20
--- NOTE | 2024-09-22 08:10 | XR ---
EXAMINATION TYPE: XR wrist limited 2 views RT, XR hand limited 2 views RT DATE OF EXAM: 09/22/2024 COMPARISON: NONE CLINICAL INDICATION: Female, 59 years old with history of fall, ulnar side pain; FINDINGS: Wrist: The radiocarpal and distal radioulnar joint as well as the mid carpal compartment appear intact. No a cute fracture, subluxation, or dislocation seen. Hand: Scattered mild osteoarthritic spurring within the fingers. Mild spurring at the first CMC and first M CP joints as well. No acute fracture, subluxation, or dislocation seen. IMPRESSION: Wrist and hand Limited by 2 views each. Minimal scattered osteoarthritic change within the fingers. N o acute osseous abnormality seen. [facility], Workstation: [id number], 09/22/2024 8:08 AM
[2024-09-22 08:38] VITALS: BP 150/81; PULSE 71; RESP 18; TEMP 98.1
== END 2024-09-22 08:39 | disposition home or self-care (01) ==
LOC: EC 07:11
DX: S63.501A Unspecified sprain of right wrist, initial encounter (principal); S60.812A Abrasion of left wrist, initial encounter; S60.512A Abrasion of left hand, initial encounter; Z88.8 Allergy status to other drugs, medicaments and biological substances; W10.9XXA Fall (on) (from) unspecified stairs and steps, initial encounter; Y99.0 Civilian activity done for income or pay; Y92.239 Unspecified place in hospital as the place of occurrence of the external cause
CPT/HCPCS: 99283